=== PATIENT | female | born 1955 | race African-American/Black ===

== ENCOUNTER → 2019-04-03 | Outpatient (CLI) | payer MEDICARE, MEDICAID, SELFPAY | PROVIDERS: PCP Internal Medicine; Visit Provider Nurse Practitioner | DX: R20.0 Anesthesia of skin (principal); M79.604 Pain in right leg; I65.21 Occlusion and stenosis of right carotid artery; M25.572 Pain in left ankle and joints of left foot; M25.571 Pain in right ankle and joints of right foot | CPT/HCPCS: 93880; 93922 ==

== ENCOUNTER 2019-07-04 10:10 | Outpatient (CLI) | payer MEDICARE, MEDICAID, SELFPAY ==
--- NOTE | ~2019-07-04 | MR_ITS ---
EXAMINATION: MR brain/brain stem wo con EXAM DATE: 07/04/2019 10:47 INDICATION: Skin paresthesia. Occasional right side hemiparesis. TECHNIQUE: Magnetic resonance imaging (MRI) of the brain/brain stem obtained without contrast. Sagitt al T1, axial diffusion, gradient echo (T2*), T1, T2, FLAIR sequences obtained. Comparison is made to prior examination from 01/27/2006. FINDINGS: There are no areas of restricted diffusion to suggest acute infarction. There is no acute hemorrhage seen on the T2*, a hemosiderin sensitive sequence. No intraparenchymal brain mass lesion. There is mild periventricular and subcortical T2/FLAIR signal hyperintensity, nonspecific but probab ly related to small vessel ischemic disease (microangiopathy). There are no extra-axial collectio ns. Flow voids are seen in the cerebral arteries on the T2-weighted sequences consistent with their expected patency. The orbits are unremarkable. Soft tissue is unremarkable. IMPRESSION: 1. No acute intracranial findings. 2. Mild microangiopathy. Reviewed, dictated and finalized at location B. TERSINKER
== END 2019-07-04 10:11 | disposition home or self-care (01) ==
LOC: ANHIMG 10:16
PROVIDERS: PCP Internal Medicine; Visit Provider Psychiatry & Neurology Neurology
DX: R20.2 Paresthesia of skin (principal); I73.9 Peripheral vascular disease, unspecified
CPT/HCPCS: 70551

== ENCOUNTER 2019-10-03 12:36 | Outpatient (CLI) | payer MEDICARE, MEDICAID, SELFPAY ==
--- NOTE | ~2019-10-03 | CT_ITS ---
EXAMINATION:CT chest high resolution wo co DATE: 10/03/2019 14:16 INDICATION: Sarcoidosis. TECHNIQUE: Computed tomography (CT) of the chest was performed without intravenous contrast. Automate d exposure control and iterative reconstruction technique were employed. The dose-length product (DLP ) was 128.14 mGy-cm. COMPARISON: Chest CT 11/21/2012 FINDINGS: There are scattered nodules, airspace, and groundglass opacities involving all lobes with a rchitectural distortion. There is varicose bronchiectasis involving the upper lobes. There are trace pleural effusions. There is left atrial enlargement the heart. There are coronary artery calcificatio ns. There is a small pericardial effusion. Calcified mediastinal and hilar lymph nodes are consistent with old granulomatous disease. There are gallstones in the gallbladder, which is normal in size. Th e central pulmonary arteries are enlarged, consistent with pulmonary arterial hypertension. There is mild thoracic spondylosis. IMPRESSION: 1. Diffuse lung disease that is predominantly stable with some areas of improvement and some areas of worsening when compared to 11/21/12, consistent with sarcoid. 2. Cholelithiasis. Reviewed, dictated and finalized at location A. IMPRESSION: 1. Diffuse lung disease that is predominantly stable with some areas of improve ment and some areas of worsening when compared to 11/21/12, consistent with sarc oid. 2. Cholelithiasis.
--- NOTE | 2019-10-03 12:56 | ECHO_ITS ---
Patient Info Name: Anderson Whitlock Age: 64 years : 1955 Gender: Female Ht: 67 in Wt: 151 lbs BSA: 1.81 m2 HR: 82 bpm BP: 143 / 96 mmHg Technical Quality: Fair Exam Date: 10/03/2019 1:20 PM Exam Location: [facility] Patient Status: Outpatient Admit Date: 10/03/2019 Staff Ordering Physician: Abdi Jessica MD French Edge Operator: Michael Carter RDCS, RT Attending Provider: Abdi Jessica MD Referring Physician: Jaskaran FISHER; Exam Type: CA echo doppler color flow Study Info Indications I27.0 - Primary pulmonary hypertension Complete two-dimensional, color flow and Doppler transthoracic echocardiogram is performed. Summary 1. Left ventricular chamber dimension is normal. 2. Left ventricular systolic function is normal, estimated at 55-60%. 3. D shape interventricular septum in systole and diastole suggesting pressure and volume overload. 4. The left ventricular diastolic function is abnormal. 5. E/e' 9 is minimally elevated. 6. Based on TAPSE 2.1 cm suggests normal RV systolic function. 7. There is mild aortic valve sclerosis. 8. There is trace mitral valve regurgitation. 9. The tricuspid valve leaflets are mildly thickened. 10. There is mild to moderate tricuspid valve regurgitation. 11. Severe pulmonary hypertension, estimated pulmonary arterial systolic pressure is 104 mmHg. 12. There is mild pulmonic regurgitation. Left Ventricle D shape interventricular septum in systole and diastole suggesting pressure and volume overload. E/e' 9 is minimally elevated. Left ventricular chamber dimension is normal. Left ventricular systolic function is normal, estimated at 55-60%. The left ventricular diastolic function is abnormal. Right Ventricle Based on TAPSE 2.1 cm suggests normal RV systolic function. Right ventricular chamber dimension is not well visualized. Left Atria Left atrial chamber dimension is normal. Right Atria Right atrial chamber dimension is normal. Aortic Valve The aortic valve is trileaflet. There is mild aortic valve sclerosis. There is no aortic valve stenosis. There is no aortic valve regurgitation. Pulmonic Valve There is mild pulmonic regurgitation. Mitral Valve There is no mitral valve stenosis. There is trace mitral valve regurgitation. Tricuspid Valve The tricuspid valve leaflets are mildly thickened. There is mild to moderate tricuspid valve regurgitation. Severe pulmonary hypertension, estimated pulmonary arterial systolic pressure is 104 mmHg. Pericardium/Pleural There is no pericardial effusion. Inferior Vena Cava Normal inferior vena cava with >50% collapse upon inspiration consistent with normal right atrial pressure, 5 mmHg. Aorta The aortic root size at the sinus of Valsalva is normal. Left Ventricular Outflow Tract Name Value Normal LVOT 2D LVOT Diameter 2.1 cm LVOT Doppler LVOT Peak Gradient 2 mmHg LVOT Mean Gradient 1 mmHg LVOT VTI 12 cm LVOT VTI/AV VTI Ratio 0.8 LVOT Rosa
== END 2019-10-03 12:37 | disposition home or self-care (01) ==
PROVIDERS: PCP Internal Medicine; Visit Provider Internal Medicine Critical Care Medicine
DX: D86.9 Sarcoidosis, unspecified (principal); J98.4 Other disorders of lung; K80.20 Calculus of gallbladder without cholecystitis without obstruction; I27.20 Pulmonary hypertension, unspecified; R93.1 Abnormal findings on diagnostic imaging of heart and coronary circulation
CPT/HCPCS: 71250; 93306

== ENCOUNTER 2019-10-30 11:06 | Outpatient (CLI) | payer MEDICARE, MEDICAID, SELFPAY ==
[2019-11-02 20:09] LABS: NIL 0.01 IU/mL; Quantiferon TB Plus, 1T NEGATIVE (NEGATIVE)
== END 2019-10-30 11:07 | disposition home or self-care (01) ==
PROVIDERS: PCP Internal Medicine; Visit Provider Internal Medicine Critical Care Medicine
DX: D86.9 Sarcoidosis, unspecified (principal)
CPT/HCPCS: 36415; 86480

== ENCOUNTER 2019-12-13 18:04 | Inpatient (IN) | payer MEDICARE, MEDICAID, SELFPAY ==
--- NOTE | ~2019-12-13 | CT_ITS ---
EXAMINATION: CT BRAIN W/O DATE: 12/13/2019 19:26 INDICATION: Confusion TECHNIQUE: Computed tomography (CT) of the head was performed without intravenous contrast. The dose- length product was 605.33 mGy-cm. The mA was adjusted according to patient size. Iterative reconstruc tion technique was employed. COMPARISON: CT dated 01/30/2007 FINDINGS: Normal brain parenchymal volume for age. Normal saravia-white differentiation. No acute intrac ranial hemorrhage, infarction, mass or mass effect. No ventriculomegaly or midline shift. Midline sagittal images demonstrate a normal corpus callosum, c raniovertebral junction and sella turcica. Basilar cisterns are patent. Mild intracranial atheroscler osis. Paranasal sinuses and mastoids are pneumatized. No depressed skull fractures. IMPRESSION: 1. No acute intracranial abnormality. Reviewed, dictated and finalized at location A.
--- NOTE | ~2019-12-13 | MR_ITS ---
EXAMINATION: MR brain/brain stem wo/w con DATE: 12/15/2019 13:40 INDICATION: Confusion. Sarcoid. TECHNIQUE: Magnetic resonance imaging (MRI) of the brain and brainstem was performed without and with 13 mL MultiHance intravenous contrast. Sequences included sagittal and axial T1-weighted FSE, axial diffusion-weighted FS EPI, axial T2*-weighted GRE, axial T2-weighted FLAIR Propeller, and axial T2-we ighted Propeller. Postcontrast sequences included axial and coronal T1-weighted FSE. Apparent diffusi on coefficient (ADC) maps were created. COMPARISON: Brain MRI 07/04/2019 FINDINGS: There are scattered areas of nonspecific increased T2-weighted signal intensity in the cere bral white matter. There is no intracranial hemorrhage, acute infarction, or abnormal intracranial ma ss lesion. The ventricles are normal in size. The mastoid air cells are normal. The paranasal sinuses are clear. The orbits are normal. IMPRESSION: 1. Stable mild nonspecific cerebral white matter disease, which likely represents chronic small vesse l ischemic disease. Reviewed, dictated and finalized at location A. IMPRESSION: 1. Stable mild nonspecific cerebral white matter disease, which likely represen ts chronic small vessel ischemic disease.
--- NOTE | ~2019-12-13 | XR_ITS ---
XR chest 1V portable 12/13/2019 19:16 Indication: Shortness of breath. Sarcoidosis. Procedure: AP portable chest Comparison: Comparison to multiple prior studies sequentially, with oldest reviewed study dated 10/02. Findings: There is extensive coarse bilateral pulmonary fibrosis which is unchanged compared with 01/2019. No acute focal pneumonia. No pneumothorax. Calcified mediastinal lymph nodes. Impression: 1: Stable pulmonary fibrosis/scarring compared with prior studies, likely sequela of patient's known sarcoidosis. Reviewed, dictated and finalized at location A. Impression: 1: Stable pulmonary fibrosis/scarring compared with prior studies, likely seque la of patient's known sarcoidosis.
--- NOTE | ~2019-12-13 | CT_ITS ---
EXAMINATION:CT chest high resolution wo [place] DATE: 12/14/2019 13:36 INDICATION: Shortness of breath. TECHNIQUE: Computed tomography (CT) of the chest was performed without intravenous contrast. Automate d exposure control and iterative reconstruction technique were employed. The dose-length product (DLP ) was 286.16 mGy-cm. COMPARISON: Chest CT 10/03/2019 FINDINGS: The lung volumes are small. There is air trapping in right middle lobe. There are periphera l reticular and airspace opacities involving all lobes. There is varicose bronchiectasis in the lungs with a perihilar and upper lobe predominance. Calcified pulmonary nodules and calcified hilar and me diastinal lymph nodes are consistent with old granulomatous disease. There are small pleural effusion s. Cardiomegaly is noted. There is a small pericardial effusion. Pneumomediastinum is noted. The cent ral pulmonary arteries are enlarged, consistent with pulmonary arterial hypertension. There is mild t horacic spondylosis. IMPRESSION: 1. Stable diffuse lung disease, consistent with sarcoid. 2. Stable small pleural effusions. 3. Pneumomediastinum. 4. Cardiomegaly. 5. Stable small pericardial effusion. Reviewed, dictated and finalized at location A.
[2019-12-13 18:24] VITALS: BP 152/108; PULSE 118; RESP 18; TEMP 36.2; O2SAT 91
--- NOTE | 2019-12-13 19:13 | ED.AMS ---
HPI - Altered Mental Status General Chief Complaint: Altered Mental Status Stated Complaint: CONFUSION FOR PAST FEW DAYS Time Seen by Provider: 12/13/19 19:00 History of Present Illness HPI narrative: Patient presents with her mom telling boyfriend for confusion and weakness. She has sarcoidosis and wears 3 L of oxygen at home. She has been referred to [facility] to be evaluated for lung transplant. She is on prednisone 20 mg a day and methotrexate. In the last week she has had increased confusion to where she just standing there and not knowing where she is going or what she is doing. She is also had weakness where she cannot get out of bed unassisted. Her boyfriend says that she also has pain in her arms and her legs that if he even just touches her in the night that she cannot bear the pain. She also has new ankle swelling in the last week. She has no history of congestive heart failure. Her appetite is poor her bowels are moving. She has nocturia 1-2 times at night. She has no pain currently. She is oriented x2 saying that is 2019. She is unable to give details this history comes from the boyfriend. There is no history of recent injury trauma or illness. She denies fever chills sweats or cough. She does not smoke cigarettes. She rarely drinks alcohol. She does smoke marijuana. Surgeries include a left carpal tunnel. MD complaint: altered mental status and confusion Onset (ago): day(s) Timing confirmed by: caregiver Severity: moderate Consistency of symptoms: waxing and waning Associated symptoms: loss of appetite, weakness and difficulty walking Related Data Home Medications Medication Instructions Recorded Confirmed aspirin 81 mg tablet,delayed 81 mg PO DAILY 06/28/19 07/22/19 release cholecalciferol (vitamin D3) 50 2,000 unit PO DAILY 06/28/19 07/22/19 mcg (2,000 unit) tablet omeprazole 20 mg capsule,delayed 20 mg PO DAILY 06/28/19 07/22/19 release tiotropium bromide 18 mcg capsule 1 cap INHALATION DAILY 06/28/19 07/22/19 with inhalation device prednisone 10 mg tablet 20 mg PO DAILY tablet 11/27/19 hydrocodone-acetaminophen 12/13/19 hydrocodone-acetaminophen 12/13/19 Allergies Allergy/AdvReac Type Severity Reaction Status Date / Time prednisone Allergy Mild Nervousness Verified 12/13/19 18:36 Quinolones Allergy Mild Nervousness Verified 12/13/19 18:36 Sulfa (Sulfonamide Allergy Mild Nausea Verified 12/13/19 18:36 Antibiotics) MOXIFLOXACIN HCL Allergy Unknown Shakiness Uncoded 12/13/19 18:36 Review of Systems Review of Systems: Narrative: CONSTITUTIONAL: Denies fever, chills, or sweats. EYES: Denies visual changes, redness, or discharge. ENT: Denies rhinorrhea, congestion, sore throat, or otalgia. CARDIOVASCULAR: Denies chest pain, palpitations, but she does have ankle swelling. RESPIRATORY: Denies cough or dyspnea. GASTROINTESTINAL: Denies abdominal pain, nausea, vomiting, or diarrhea. GENITOURINARY: Denies dysuria or hematuria. SKIN: Denies rash or itching. MUSCULOSKELETAL: Denies back pain, joint pain, or myalgia. NEUROLOGIC: Denies headache, numbness, but does have weakness and confusion. [facility] Past Medical History Medical History (Updated 12/13/19 @ 21:04 by Cady Davies MD) Chronic respiratory failure with hypoxia Hypertension, essential Pulmonary hypertension Sarcoidosis Wrist fracture, left Surgical History Surgical History (Updated 12/13/19 @ 19:17 by Cady Davies MD) History of carpal tunnel surgery Family History Family History (Updated 07/22/19 @ 09:48 by Sayda Zarate NP-C) Mother Hypertension Family history of chronic obstructive pulmonary disease Sibling Family history of chronic obstructive pulmonary disease Family history of diabetes mellitus in first degree relative Diabetes mellitus Other Breast cancer Other Family history of congenital heart disease Social History Social History (Updated 12/13/19 @ 19:17 by Cady Davies MD) Smo
--- NOTE | 2019-12-13 19:19 | ECG_ITS ---
Measurements Intervals [place] Rate: 112 P: 75 MO: 156 QRS: 98 QRSD: 93 T: -63 QT: 331 QTc: 453 Interpretive Statements SINUS TACHYCARDIA RIGHT AXIS DEVIATION EARLY PRECORDIAL R/S TRANSITION, CONSIDER RIGHT VENTRICULAR HYPERTROPHY ST-T WAVE ABNORMALITY IN ANTEROSEPTAL/INF LEADS- CONSIDER ISCHEMIA ABNORMAL ECG Electronically Signed On 12-14-2019 6:49:40 CDT by Jet Moulton D.O.
[2019-12-13] MEDS: SODIUM CHLORIDE 0.9% IV 1,000 ML 999 ML IV CONT (19:51)
[2019-12-13] MEDS: NALOXONE HCL INJ 2 MG/2 ML AMP 1 MG IV PUSH (19:51)
[2019-12-13 20:04] LABS: Basophils Percent Auto 0.2 % (0.2-1.2); Eosinophils Percent Auto 0.1 % (0-4.4); Hematocrit 44.9 % (37.0-47.0); Hemoglobin 14.2 g/dL (12.0-15.0); Immature Granulocyte Absolute 0.05 K/mm3 (0.00-0.031); Immature Granulocyte Percent A 0.5 % (0-0.5); Lymphocytes Absolute Auto 0.77 K/mm3 (0.9-3.2); Lymphocytes Percent Auto 7.4 % (18.3-44.2); Mean Corpuscular HGB Conc 31.6 g/dl (32-36); Mean Corpuscular Hemoglobin 31.8 pg (26-34); Mean Corpuscular Volume 100.4 fl (80-100); Mean Platelet Volume 9.2 fl (7.4-10.4); Monocytes Absolute Auto 0.6 K/mm3 (0.1-0.6); Monocytes Percent Auto 5.4 % (2.6-8.5); Neutrophils Absolute Auto 9.1 K/mm3 (1.3-6.7); Neutrophils Percent Auto 86.4 % (45.5-73.1); Platelet Count Result 335 k/mm3 (150-375); Red Blood Count 4.47 M/mm3 (4.2-5.4); Red Cell Distribution Width 16.5 % (11.5-14.5); White Blood Count 10.5 K/mm3 (4.5-10.0)
[2019-12-13 20:09] LABS: Add Urine Microscopic? YES; Appearance Urine Clear (Clear); Bacteria Urine Trace /hpf; Bilirubin Urine Negative (Negative); Blood Urine 3+ (Negative); Color Urine Yellow (Yellow); Glucose Urine UA Negative (Negative); Hyaline Casts Urine 20-29 /lpf; Ketones Urine Trace mg/dL (Negative); Leukocyte Esterase Ur Negative LEU/UL (Negative); Mucus Urine Heavy /lpf; Nitrate Urine Negative (Negative); Protein Urine 3+ mg/dL (Negative); RBC Urine 21-50 /hpf (0-2); Renal Epithelial Cells Urine Rare /hpf (None Seen); Squamous Epithelial Cell Urine Many /hpf (Few)
[2019-12-13 20:14] LABS: Alveolar/Arterial O2 Gradient 51.5 mmHg; Base Excess ABG -0.5 mEq/l (+/-2.0); Fractional Inspired Oxygen 32 %; HCO3 ABG 22.5 mEq/l (22.0-26.0); Oxygen Content ABG 19.8 %vol (16.0-22.0); Oxygen Saturation ABG 98.9 % (95.0-100.0); Oxyhemoglobin 97.3 % THb (90.0-100.0); PCO2 ABG 32.5 mmHg (35.0-45.0); PO2 ABG 138.6 mmHg (80.0-100.0); PO2 FiO2 Ratio Arterial Blood 4.33 %; Total Hemoglobin 14.3 g/dL (12.0-18.0); pH ABG 7.459 (7.350-7.450)
[2019-12-13 20:15] LABS: Device NASAL CANNULA; Modified Allen's Test Pass; Site Drawn RIGHT RADIAL
[2019-12-13 20:17] LABS: Alanine Aminotransferase 32 U/L (4-35); Albumin Level 4.5 g/dL (3.5-5.1); Alkaline Phosphatase 44 U/L (38-126); Aspartate Amino Transferase 29 U/L (14-36); Bilirubin,Total 2.2 mg/dL (0.2-1.3); Blood Urea Nitrogen 26 mg/dL (7-17); Calcium 9.6 mg/dL (8.4-10.2); Carbon Dioxide 24 mmol/L (22-30); Chloride 107 mmol/L (98-107); Estimated CRCL calculation 48 ml/min; Estimated Glomerular Filt Rate > 60; Ethanol < 10 mg/dL (<10); Glucose 133 mg/dL (65-105); Potassium 4.2 mmol/L (3.4-5.0); Sodium 140 mmol/L (137-145); Specific Grav Ur 1.031 (1.001-1.035)
[2019-12-13 20:26] LABS: NT Pro B Type Natriuretic Pept 10500 PG/ML (5-100)
[2019-12-13 20:39] LABS: Amphetamine Screen Urine Negative (Negative); Barbiturate Screen Urine Negative (Negative); Benzodiazepines Screen Urine Negative (Negative); Cannabinoid Screen Urine Negative (Negative); Cocaine Screen Urine Negative (Negative); Methadone Screen Urine Negative (Negative); Opiate Screen Urine Positive (Negative); Phencyclidine Screen Urine Negative (Negative)
--- NOTE | 2019-12-13 20:45 | PC.NURSE ---
Patient called out and stated her arm was swollen. IV appears to have infiltrated. Patient denies pain. IV removed. Warm compress applied.
[2019-12-13 20:46] VITALS: BP 117/93; PULSE 110; RESP 21; O2SAT 100
[2019-12-13] MEDS: FUROSEMIDE INJ 40 MG/4 ML VIAL IV PUSH (21:42)
[2019-12-13 22:59] VITALS: BP 149/98; PULSE 110; RESP 18; O2SAT 100
[2019-12-13 23:06] VITALS: BP 146/97; PULSE 110; RESP 18; TEMP 36.1; O2SAT 93; BMI 23.6
[2019-12-13 23:15] VITALS: PULSE 112
[2019-12-13 23:25] VITALS: PULSE 110; RESP 18; O2SAT 93; BMI 23.6
--- NOTE | 2019-12-13 23:31 | ADMGEN ---
This patient, Anderson Whitlock, was admitted to IMU Room 232-01 on 12/13/19 at 2306. Patient/family oriented to hospital policies and general routines including ID bracelet, bed and alarms, visiting hours, pain management, procedures, bathroom and other care routines, personal items, smoking policy, room service/diet, and visiting hours. Valuables list has been completed. Information on how to activate the Rapid Response Team has been discussed. Patient/Family are encouraged to report perceived risks to care and to ask questions if they do not understand what they are told or what they should do.
[2019-12-13 23:42] LABS: Troponin I 0.065 ng/mL (0.000-0.034)
[2019-12-14] VITALS (14 sets, daily range): BP systolic 130–152; BP diastolic 81–99; PULSE 88–114; RESP 18–20; TEMP 35.8–36.5; O2SAT 96–100
[2019-12-14 02:55] LABS: Troponin I 0.068 ng/mL (0.000-0.034)
[2019-12-14] MEDS: ONDANSETRON INJ 4 MG/2 ML VIAL IV PUSH (04:30)
[2019-12-14] MEDS: FLUTICASONE/SALMETEROL 115-21 MCG INHALER 1 PUFF 2 PUFF INHALATION ×2 (08:36→19:57)
[2019-12-14] MEDS: ASPIRIN 81 MG ENTERIC TABLET PO (08:54)
[2019-12-14] MEDS: CHOLECALCIFEROL 1,000 UNIT TABLET 2000 UNITS PO (08:55)
[2019-12-14] MEDS: PANTOPRAZOLE SOD SESQUIHYDRATE 20 MG TAB PO (08:55)
[2019-12-14] MEDS: METOPROLOL SUCCINATE EXT REL 25 MG TABCR 75 MG PO ×2 (08:55→21:03)
[2019-12-14] MEDS: predniSONE 20 MG TABLET PO (08:55)
--- NOTE | 2019-12-14 10:59 | PM.CNPUL ---
Assessment and Plan Assessment and plan (1) WHO group 3 pulmonary arterial hypertension: Code(s): I27.23 - Pulmonary hypertension due to lung diseases and hypoxia Status: Acute Assessment and Plan: - due to combination of advanced Sarcoidosis and chronic hypoxemia - I instructed her to keep her oxygen at 5 liters at rest, sleep and exertion once she goes home to avoid transient drops in oxygen levels. - goal O2 sats > 92% - lasix 20 mg PO daily will be started - spironolactone 12.5 mg PO daily will also be started - Pulmonary Artery Hypertension directed therapy such pulmonary vasodilators and other are contraindicated and not helpful in this case. (2) Chronic respiratory failure with hypoxia: Code(s): J96.11 - Chronic respiratory failure with hypoxia Status: Acute Assessment and Plan: Due to advanced Sarcoidosis (3) Sarcoidosis: Code(s): D86.9 - Sarcoidosis, unspecified Status: Acute Assessment and Plan: Severe and advanced. - I've put in a Lung Transplantation referral to [facility] about 2-3 weeks ago - I've asked her boyfriend to call our office on Monday to see where that is in the process - continue prednisone 20 mg daily - continue Methotrexate 10 mg weekly on Monday - will add Folic Acid 1 mg PO daily (4) Change in mental status: Code(s): R41.82 - Altered mental status, unspecified Status: Acute Assessment and Plan: Likely due to transient home hyoxemia on exertion and seems to have resolved. - if stable by tomorrow can be discharged home from my point of view. History of Present Illness History of Present Illness Consult date: 12/14/19 Reason for consult: dyspnea Chief complaint: new CHF, sarcoidosis, SOB Narrative: 64 y/o with advanced pulmonary sarcoidosis presents with confusion according to her boyfriend. According to her she's not routinely increasing oxygen levels from 3 to 5 liters on exertion as I instructed her in office many weeks ago. According to her boyfriend she's also complaining of her feet hurting but no parasthesia complaints. CT head was normal yesterday. She's had increased LE edema and recent Echo showed severe pulmonary hypertension with an estimated RSVP of 104 mm Hg and likely due to severe sarcoidosis and chronic hyoxemia . She's supposed to be on prednisone 20 mg daily + methotrexate 10 mg daily but her boyfriend tells me that she's not consistent with taking her meds and sometimes takes lower doses. Review of Systems Review of Systems: All systems reviewed & are unremarkable except as noted in HPI and below PMFSH Past Medical History Medical History (Updated 12/14/19 @ 11:07 by Abdi Jessica MD) Chronic respiratory failure with hypoxia Hypertension, essential Pulmonary hypertension Sarcoidosis WHO group 3 pulmonary arterial hypertension Wrist fracture, left Surgical History Surgical History (Updated 12/13/19 @ 19:17 by Cady Davies MD) History of carpal tunnel surgery Social History Social History (Updated 12/13/19 @ 19:17 by Cady Davies MD) Smoking status: Never smoker Alcohol intake: current Substance use: never Substance use type: marijuana Gender identity (if verbalized by the patient): Female Spiritual care concerns: No Meds Home Medications and Allergies Home Medications Medication Instructions Recorded Confirmed Type aspirin 81 mg tablet,delayed 81 mg PO DAILY 06/28/19 12/13/19 History release cholecalciferol (vitamin D3) 50 2,000 unit PO DAILY 06/28/19 12/13/19 History mcg (2,000 unit) tablet omeprazole 20 mg capsule,delayed 20 mg PO DAILY 06/28/19 12/13/19 History release tiotropium bromide 18 mcg capsule 1 cap INHALATION DAILY 06/28/19 12/14/19 History with inhalation device fluticasone 250 mcg-salmeterol 50 1 inhalation INHALATION BID #60 08/16/19 12/13/19 Rx mcg/dose blistr powdr for each inhalation hydrocodone 7.5 mg-acetaminophen
[2019-12-14] MEDS: SPIRONOLACTONE 12.5 MG TABLET PO (11:46)
[2019-12-14] MEDS: FOLIC ACID 1 MG TABLET PO (11:46)
[2019-12-14] MEDS: FUROSEMIDE 20 MG TABLET PO (11:46)
--- NOTE | 2019-12-14 15:58 | PM.IMHP ---
H&P: HPI History of Present Illness Chief complaint: new CHF, sarcoidosis, SOB Narrative: Anderson Whitlock is a 64 year old female patient with a sarcoidosis resulting in end-stage lung disease, patient is on chronically on methotrexate as well as prednisone, is currently on 3L of oxygen at rest and 5 L with exertion however patient does not adjust her oxygen while ambulating to 5 L, apparently patient was ambulating on 3 L of oxygen and became hypoxic and confused and disoriented, patient was brought to the emergency department for further evaluation, patient is currently seen by senior validation engineer Dr. Jessica in his clinic, and patient also on waiting list for lung transplant at the [facility], today patient was seen by the senior validation engineer in consultation and we discussed, patient will repeat CT scan of the chest to compare last scan in September and further recommendation to follow, if patient remains clinically stable will discharge the patient home tomorrow. Review of Systems Review of Systems: All systems reviewed & are unremarkable except as noted in HPI and below PMFSH Past Medical History Medical History (Updated 12/14/19 @ 16:09 by Dianna Bland MD) Chronic respiratory failure with hypoxia Hypertension, essential Pulmonary hypertension Sarcoidosis WHO group 3 pulmonary arterial hypertension Wrist fracture, left Surgical History Surgical History (Updated 12/13/19 @ 19:17 by Cady Davies MD) History of carpal tunnel surgery Social History Social History (Updated 12/13/19 @ 19:17 by Cady Davies MD) Smoking status: Never smoker Alcohol intake: current Substance use: never Substance use type: marijuana Gender identity (if verbalized by the patient): Female Spiritual care concerns: No Meds Home Medications and Allergies Home Medications Medication Instructions Recorded Confirmed Type aspirin 81 mg tablet,delayed 81 mg PO DAILY 06/28/19 12/13/19 History release cholecalciferol (vitamin D3) 50 2,000 unit PO DAILY 06/28/19 12/13/19 History mcg (2,000 unit) tablet omeprazole 20 mg capsule,delayed 20 mg PO DAILY 06/28/19 12/13/19 History release tiotropium bromide 18 mcg capsule 1 cap INHALATION DAILY 06/28/19 12/14/19 History with inhalation device fluticasone 250 mcg-salmeterol 50 1 inhalation INHALATION BID #60 03/13/20 07/10/20 Rx mcg/dose blistr powdr for each inhalation hydrocodone 7.5 mg-acetaminophen 1 tablet PO Q8H PRN #60 tablet 08/16/19 12/13/19 Rx 325 mg tablet methotrexate sodium 2.5 mg tablet 10 mg PO WEEKLY #20 tablet 11/27/19 12/13/19 Rx metoprolol succinate 75 mg PO BID 12/13/19 12/13/19 History prednisone 20 mg PO BID 12/13/19 12/13/19 History Allergies Allergy/AdvReac Type Severity Reaction Status Date / Time prednisone Allergy Mild Nervousness Verified 12/13/19 18:36 Quinolones Allergy Mild Nervousness Verified 12/13/19 18:36 Sulfa (Sulfonamide Allergy Mild Nausea Verified 12/13/19 18:36 Antibiotics) MOXIFLOXACIN HCL Allergy Unknown Shakiness Uncoded 12/13/19 18:36 Vital Signs Vital Signs - 24 hr 12/13/19 18:24 12/13/19 20:46 12/13/19 22:59 Temperature 97.1 F L Pulse Rate 118 H 110 H 110 H Respiratory Rate 18 21 H 18 Blood Pressure 152/108 H 117/93 H 149/98 H Pulse Oximetry 91 100 100 12/13/19 23:06 12/13/19 23:15 12/13/19 23:25 Temperature 96.9 F L Pulse Rate 110 H 112 H 110 H Respiratory Rate 18 18 Blood Pressure 146/97 H Pulse Oximetry 93 93 12/14/19 00:00 12/14/19 01:57 12/14/19 04:00 Temperature 97.4 F L Pulse Rate 112 H 104 H 93 Respiratory Rate 20 Blood Pressure 130/81 Pulse Oximetry 97 12/14/19 06:00 12/14/19 08:00 12/14/19 08:40 Temperature 96.4 F L Pulse Rate 102 H 105 H 103 H Respiratory Rate 20 18 Blood Pressure 132/97 H Pulse Oximetry 96 96 12/14/19 08:55 12/14/19 12:00 12/14/19 14:00 Temperature 97.0 F L Pulse Rate 107 H 102 H 101 H Respiratory Rate 20
--- NOTE | 2019-12-14 16:12 | PC.NURSE ---
1545- orders to transfer to med/tele- report given to Gloria BAUTISTA- pt transferred to room 242 via bed with O2 on NC- accompanied by RN and friend. personal belongings with pt
--- NOTE | 2019-12-14 16:15 | PC.NURSE ---
This patient, Anderson Whitlock, was received from [facility] 232/01 on 12/14/19 at 1605. Personal belongings list checked and signed. Patient/family oriented to unit policies and routines
[2019-12-15] VITALS (12 sets, daily range): BP systolic 106–134; BP diastolic 80–94; PULSE 87–103; RESP 16–18; TEMP 36–36.9; O2SAT 94–100
[2019-12-15 01:32] LABS: Alveolar/Arterial O2 Gradient 191.9 mmHg; Base Excess ABG -2.6 mEq/l (+/-2.0); Carboxyhemoglobin 1.1 % THb (0-2.0); Fractional Inspired Oxygen 40 %; Methemoglobin ABG 0.2 %THb (0-1.5); Oxygen Saturation ABG 92.2 % (95.0-100.0); Oxyhemoglobin 88.6 % THb (90.0-100.0); PCO2 ABG 29.5 mmHg (35.0-45.0); PO2 ABG 59.4 mmHg (80.0-100.0); PO2 FiO2 Ratio Arterial Blood 1.49 %; Reduced Hemoglobin 10.1 %THb (0-5.0); Total Hemoglobin 15.3 g/dL (12.0-18.0); pH ABG 7.449 (7.350-7.450)
[2019-12-15 01:33] LABS: Device NASAL CANNULA; Site Drawn RIGHT FEMORAL
[2019-12-15] MEDS: HALOPERIDOL LACTATE 5 MG/ML VIAL IM (01:41)
--- NOTE | 2019-12-15 02:12 | PC.NURSE ---
notified pts emergency contact Gerardo of pts transfer to IMU.
--- NOTE | 2019-12-15 02:14 | PC.NURSE ---
This patient, Anderson Whitlock, was received from [ [id number]] on 12/15/19 at 0200. Personal belongings list checked and signed. Patient/family oriented to unit policies and routines
--- NOTE | 2019-12-15 02:17 | PC.NURSE ---
This patient, Anderson Whitlock, was transferred to [IMU 204 ] on 12/15/19 at 0155. Personal belongings sent with patient. Belongings list checked and signed with receiving [ ]. Report given to [Gloria BAUTISTA ]. Appropriate documentation sent with patient.
[2019-12-15 04:30] LABS: Hematocrit 42.5 % (37.0-47.0); Hemoglobin 13.4 g/dL (12.0-15.0); Mean Corpuscular HGB Conc 31.5 g/dl (32-36); Mean Corpuscular Hemoglobin 31.4 pg (26-34); Mean Corpuscular Volume 99.5 fl (80-100); Mean Platelet Volume 9.4 fl (7.4-10.4); Platelet Count Result 309 k/mm3 (150-375); Red Blood Count 4.27 M/mm3 (4.2-5.4); Red Cell Distribution Width 15.9 % (11.5-14.5); White Blood Count 12.5 K/mm3 (4.5-10.0)
[2019-12-15 04:45] LABS: Alanine Aminotransferase 24 U/L (4-35); Albumin Level 3.8 g/dL (3.5-5.1); Alkaline Phosphatase 38 U/L (38-126); Aspartate Amino Transferase 27 U/L (14-36); Bilirubin,Total 2.3 mg/dL (0.2-1.3); Blood Urea Nitrogen 22 mg/dL (7-17); Carbon Dioxide 28 mmol/L (22-30); Chloride 106 mmol/L (98-107); Estimated CRCL calculation 53 ml/min; Estimated Glomerular Filt Rate > 60; Glucose 91 mg/dL (65-105); Magnesium 2.3 mg/dL (1.6-2.3); Potassium 3.7 mmol/L (3.4-5.0); Sodium 141 mmol/L (137-145)
--- NOTE | 2019-12-15 04:58 | PM.CCN ---
Critical Care Event Note Summary Code activated: No Narrative: Nursing staff called to notify me that the patient was agitated and pulling off her oxygen around 1:00 a.m.. She would not leave telemetry in place and was tachycardic. She was paranoid stating that the the oxygen was poisoning her. The patient was tachypneic and restless. Respiratory therapy was unable to obtain a stat ABG. When I arrived at bedside 5 staff members holding the patient down. I used an ultrasound at bedside to obtain a right femoral arterial blood gas. The gas was somewhat mixed as the patient was thrashing and writhing while I attempted the procedure. The patient's PO2 on her ABG was consistent with a pulse ox of 92%. Patient was placed on pulse oximetry at bedside and pulse ox from a forehead center demonstrated pulse ox of 99%. Given the patient's agitation and paranoia I did give the patient a dose of IM Haldol 5 mg. The patient had no localizing neurologic deficits on exam. She had 5/5 strength in all of her extremities. Nursing staff actually reported that the patient's speech was clear during this episode than it had been earlier in the day. The patient has evidently been having episodes of confusion each evening while at home. She had a CT of her brain on admission that was negative for acute intercranial process. She had an MRI of her brain in June that demonstrated nonspecific microangiopathy likely due to small-vessel ischemic disease. The patient was transferred to the IMU for closer monitoring of her neuro status and respiratory status. After Haldol administration the patient is calm. She is only alert and oriented x1. Assessment: 1. altered mental status with agitation-patient has been transferred to the IMU and IM Haldol was administered. 2. sarcoidosis 3. chronic hypoxic respiratory failure-respiratory status is stable. Patient is maintain her oxygen saturations on her usual home oxygen as long as she is leaving her oxygen in place. I did give permission for nursing staff to place the patient in restraints briefly while we obtained ABG sample. 30 minutes spent in critical care activities. This case had a high probability of a clinically significant, sudden, or life threatening deterioration of this patient's condition which required my full and direct attention, intervention and personal management. Critical care time: 30 - 74 mins
[2019-12-15] MEDS: FUROSEMIDE 20 MG TABLET PO (08:17)
[2019-12-15] MEDS: PANTOPRAZOLE SOD SESQUIHYDRATE 20 MG TAB PO (08:17)
[2019-12-15] MEDS: SPIRONOLACTONE 12.5 MG TABLET PO (08:18)
[2019-12-15] MEDS: predniSONE 20 MG TABLET PO (08:18)
[2019-12-15] MEDS: METOPROLOL SUCCINATE EXT REL 25 MG TABCR 75 MG PO ×2 (08:18→20:50)
--- NOTE | 2019-12-15 08:52 | PC.NURSE ---
This patient, Anderson Whitlock, was transferred to [facility] on 12/15/19 at 0852. Personal belongings sent with patient. Report given to Marly. Appropriate documentation sent with patient.
--- NOTE | 2019-12-15 08:58 | PC.NURSE ---
This patient, Anderson Whitlock, was received from IMU on 12/15/19 at 0852. Personal belongings list checked and signed. Patient/family oriented to unit policies and routines
[2019-12-15] MEDS: FLUTICASONE/SALMETEROL 115-21 MCG INHALER 1 PUFF 2 PUFF INHALATION (09:47)
--- NOTE | 2019-12-15 12:23 | PM.PNPUL ---
Progress Note: A&P Assessment and Plan (1) Acute and chronic respiratory failure with hypoxia: Code(s): J96.21 - Acute and chronic respiratory failure with hypoxia Status: Acute Assessment and Plan: contintune oxygen to keep sats > 92% at all times - would recommend continous pulse oxyimeter monitoring for 24-48 hours (2) WHO group 3 pulmonary arterial hypertension: Code(s): I27.23 - Pulmonary hypertension due to lung diseases and hypoxia Status: Acute Assessment and Plan: due to severe Sarcoidosis and chronic hypoxemia - continue oxygen to keep sats > 92% at all times - continue lasix 20 mg daily + spironlactone 12.5 mg daily - pulmonary vasodilator therapy would not be helpful in this case and may worsen hypoxemia (3) Change in mental status: Code(s): R41.82 - Altered mental status, unspecified Status: Acute (4) Sarcoidosis: Code(s): D86.9 - Sarcoidosis, unspecified Status: Acute (5) Delirium due to another medical condition: Code(s): F05 - Delirium due to known physiological condition Status: Acute Assessment and Plan: May be due to underlying Sarcoidosis or transient hypoxemia when she takes off her oxygen. - I will order a non urgent MRI of the brain to look for evidence of neurosarcoidosis. - I will order seroquel 50 mg PO QHS - Ativan 1 mg IV/PO QHS PRN for hyperactive acute delerium - consider Neurology consult if not improving and possibly LP - No signs of acute infection in the lungs. Will check UA and urine culture to r/o UTI. Time Spent With Patient Time with patient: 25 - 35 minutes Subjective Date/time seen: 12/15/19 12:23 Interval history: Pt had epidsode of delerium last night per [employer] engineer hospitalist. She was saying the oxygen was poisoning and although not recorded her nurse said that her oxygen sats dropped to around 88% this morning. Her boyfriend says this her behavior at home as well and he would often find her without oxygen on at night. He says even during the day her mental status is not normal and this has been going for the past 1-2 weeks. I ordered 1 mg of Ativan and she appears comfortable and sleeping in bed Review of Systems Review of Systems: All systems reviewed & are unremarkable except as noted in HPI and below Exam Const: General: comfortable and no acute distress Other: sleeping comfortably in bed Eyes: General: appearance normal, both eyes and all related structures Neck: Neck: supple and no JVD Resp: Effort & Inspection: normal respiratory effort Auscultation: clear to auscultation bilaterally, no crackles, no rales, no rhonchi and no wheezes Cardio: Rate: regular rate Rhythm: regular rhythm Heart sounds: no murmurs GI: GI Palp: Yes Soft to palpation Auscultation: normal bowel sounds Skin: General skin exam: normal color and no rashes or lesions noted Neuro: Speech: normal speech Other: A+O X 3 today and seems improved when compared to admission. GCS is 15 Extrem: General: edema (1-2+ edema in bilateral LE) Psych: Mental Status: mental status grossly normal Affect: normal affect Objective Data Vital Signs Vital Signs: Vital Signs - 24 hr 12/14/19 14:00 12/14/19 16:02 12/14/19 18:00 Temperature 36.5 C Pulse Rate 101 H 114 H 107 H Respiratory Rate 20 Blood Pressure 146/87 H Pulse Oximetry 97 12/14/19 20:00 12/14/19 20:02 12/14/19 21:03 Temperature 36.4 C L Pulse Rate 101 H 88 110 H Respiratory Rate 20 18 Blood Pressure 152/98 H Pulse Oximetry 99 97 12/15/19 00:00 12/15/19 00:30 12/15/19 02:00 Temperature 36.0 C L 36.9 C Pulse Rate 87 94 102 H Respiratory Rate 18 18 Blood Pressure 106/84 122/80 Pulse Oximetry 99 100 12/15/19 04:00 12/15/19 06:00 12/15/19 07:37 Temperature 36.9 C Pulse Rate 92 99 103 H Respiratory Rate 18 16 Blood Pressure 107/88 134/94 H Pulse Oximetry 99 96 12/15/19 08:18 12/15/19 09:47 Temperature Pul
--- NOTE | 2019-12-15 12:59 | PM.IMPN ---
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 Jessica in his clinic, and patient also on waiting list for lung transplant at the [facility], today patient was seen by the manufacturing specialist in consultation and we discussed, patient will repeat CT scan of the chest to compare last scan in September and further recommendation to follow. Last night patient had episode of confusion and delirium, today discussed with Dr. Jessica suspect hypoxia major cause of confusion as patient does not wear her oxygen all the time, to further evaluate patient will have MRI of the brain, will start the patient on low-dose Seroquel at the bedtime, will continue to monitor, currently patient is somnolent, her fiancee is present in the room answered all his questions (2) Change in mental status: Code(s): R41.82 - Altered mental status, unspecified Status: Acute Assessment and Plan: Most likely secondary to hypoxia (3) Sarcoidosis: Code(s): D86.9 - Sarcoidosis, unspecified Status: Acute Assessment and Plan: Patient with sarcoidosis satting in end-stage lung disease chronically on methotrexate and prednisone, patient is seen by manufacturing specialist and patient is on waiting list for lung transplant. 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 Jessica in his clinic, and patient also on waiting list for lung transplant at the [facility], today patient was seen by the manufacturing specialist in consultation and we discussed, patient will repeat CT scan of the chest to compare last scan in September and further recommendation to follow. Last night patient had episode of confusion and delirium, today discussed with Dr. Jessica suspect hypoxia major cause of confusion as patient does not wear her oxygen all the time, to further evaluate patient will have MRI of the brain, will start the patient on low-dose Seroquel at the bedtime, will continue to monitor, currently patient is somnolent, her fiancee is present in the room answered all his questions Review of Systems Review of Systems: All systems reviewed & are unremarkable except as noted in HPI and below Exam Narrative: Exam Narrative: Patient appears chronically ill Const: General: comfortable and no acute distress HENMT: General nose exam: Normal nares present Eyes: General: appearance normal, both eyes and all related structures Sclera: sclerae normal Neck: Neck: supple Resp: Other: Bilateral poor air entry with rhonchi Cardio: Rate: regular rate Rhythm: regular rhythm GI: Auscultation: normal bowel sounds Skin: General skin exam: normal color Neuro: Speech: normal speech Sensory Exam: normal sensation Extrem: General: normal to inspection Psych: Affect: Anxious affect p
[2019-12-15 15:52] LABS: Add Urine Microscopic? YES; Appearance Urine Clear (Clear); Bilirubin Urine Negative (Negative); Blood Urine 2+ (Negative); Color Urine Amber (Yellow); Glucose Urine UA Negative (Negative); Ketones Urine Trace mg/dL (Negative); Leukocyte Esterase Ur Trace LEU/UL (Negative); Mucus Urine Heavy /lpf; Nitrate Urine Negative (Negative); Protein Urine 2+ mg/dL (Negative); Specific Grav Ur 1.027 (1.001-1.035); Squamous Epithelial Cell Urine Many /hpf (Few); WBC Urine 16-20 /hpf
[2019-12-15] MEDS: QUEtiapine FUMARATE 25 MG TABLET 50 MG PO (20:52)
[2019-12-16] VITALS (11 sets, daily range): BP systolic 127–144; BP diastolic 86–98; PULSE 92–112; RESP 18–20; TEMP 36.2; O2SAT 88–100
[2019-12-16 05:27] LABS: Hematocrit 44.8 % (37.0-47.0); Hemoglobin 14.3 g/dL (12.0-15.0); Mean Corpuscular HGB Conc 31.9 g/dl (32-36); Mean Corpuscular Volume 100.2 fl (80-100); Mean Platelet Volume 9.5 fl (7.4-10.4); Platelet Count Result 319 k/mm3 (150-375); Red Blood Count 4.47 M/mm3 (4.2-5.4); Red Cell Distribution Width 15.9 % (11.5-14.5); White Blood Count 11.9 K/mm3 (4.5-10.0)
[2019-12-16 05:39] LABS: Alanine Aminotransferase 23 U/L (4-35); Albumin Level 3.7 g/dL (3.5-5.1); Alkaline Phosphatase 44 U/L (38-126); Aspartate Amino Transferase 27 U/L (14-36); Bilirubin,Total 2.4 mg/dL (0.2-1.3); Blood Urea Nitrogen 21 mg/dL (7-17); Carbon Dioxide 26 mmol/L (22-30); Chloride 105 mmol/L (98-107); Estimated CRCL calculation 53 ml/min; Estimated Glomerular Filt Rate > 60; Glucose 97 mg/dL (65-105); Potassium 3.7 mmol/L (3.4-5.0); Sodium 138 mmol/L (137-145)
[2019-12-16] MEDS: predniSONE 20 MG TABLET PO (08:24)
[2019-12-16] MEDS: FOLIC ACID 1 MG TABLET PO (08:25)
[2019-12-16] MEDS: CHOLECALCIFEROL 1,000 UNIT TABLET 2000 UNITS PO (08:25)
[2019-12-16] MEDS: ASPIRIN 81 MG ENTERIC TABLET PO (08:25)
[2019-12-16] MEDS: METOPROLOL SUCCINATE EXT REL 25 MG TABCR 75 MG PO (08:25)
[2019-12-16] MEDS: FUROSEMIDE 20 MG TABLET PO (08:25)
[2019-12-16] MEDS: PANTOPRAZOLE SOD SESQUIHYDRATE 20 MG TAB PO (08:25)
[2019-12-16] MEDS: SPIRONOLACTONE 12.5 MG TABLET PO (08:26)
[2019-12-16] MEDS: FLUTICASONE/SALMETEROL 115-21 MCG INHALER 1 PUFF 2 PUFF INHALATION (09:29)
--- NOTE | 2019-12-16 12:15 | PM.PNPUL ---
Progress Note: A&P Assessment and Plan (1) Acute and chronic respiratory failure with hypoxia: Code(s): J96.21 - Acute and chronic respiratory failure with hypoxia Status: Acute Assessment and Plan: contintune oxygen to keep sats > 92% at all times - Home O2 evaluation before going home today. She says she is using 2-2.5 L/min all the time, and needs more. - Follow up in the office in 1-2 weeks. (2) WHO group 3 pulmonary arterial hypertension: Code(s): I27.23 - Pulmonary hypertension due to lung diseases and hypoxia Status: Acute Assessment and Plan: due to severe Sarcoidosis and chronic hypoxemia - continue oxygen to keep sats > 92% at all times - continue lasix 20 mg daily + spironlactone 12.5 mg daily - pulmonary vasodilator therapy would not be helpful in this case and may worsen hypoxemia (3) Change in mental status: Code(s): R41.82 - Altered mental status, unspecified Status: Acute Assessment and Plan: 12-15-2019 brain MRI : Stable mild nonspecific cerebral white matter disease, likely represents chronic small vessel ischemic disease. - improved (4) Sarcoidosis: Code(s): D86.9 - Sarcoidosis, unspecified Status: Acute Assessment and Plan: (5) Delirium due to another medical condition: Code(s): F05 - Delirium due to known physiological condition Status: Acute Assessment and Plan: Resolved; might have been due to underlying Sarcoidosis or transient hypoxemia when she takes off her oxygen. - MRI of the brain does not show neurosarcoidosis, only stable mild nonspecific cerebral white matter disease, which likely represents chronic small vessel ischemic disease. - seroquel 50 mg PO QHS - consider Neurology consult if not improving and possibly LP - No signs of acute infection in the lungs. UA = may have some evidence of inflammation with rbc, on antibiotics. Subjective Date/time seen: 12/16/19 12:15 Interval history: This 64 yo female is seen in follow up for sarcoidosis, WHO class 3 pulmonary hypertension, acute on chronic respiratory failure. She says that she uses oxygen at 2- 2.5 L/min with rest and exertion. She agreed to walk and have the O2 adjusted. She has not been using her O2 as instructed, does not appear to be thinking clearly. She did not have delirium last night. She is awake, her is at the bedside. He is asking about a hospital bed to use at home and some kind of home alarm to let him know if she falls, something like a Life Alert monitor to wear around her neck. He can obtain a rental hospital bed from [facility] or [facility]. She is feeling better, and wants to go home today. Review of Systems Review of Systems: All systems reviewed & are unremarkable except as noted in HPI and below Exam Const: General: comfortable and no acute distress Other: sitting comfortably in bed Eyes: General: appearance normal, both eyes and all related structures Neck: Neck: supple and no JVD Resp: Effort & Inspection: normal respiratory effort Auscultation: clear to auscultation bilaterally, no crackles, no rales, no rhonchi and no wheezes Cardio: Rate: regular rate Rhythm: regular rhythm Heart sounds: no murmurs GI: Auscultation: normal bowel sounds Skin: General skin exam: normal color and no rashes or lesions noted Neuro: Speech: normal speech Other: A+O X 3 today and seems improved when compared to admission. GCS is 15 Extrem: General: edema (trace in the left ankle ) left Psych: Mental Status: mental status grossly normal Affect: normal affect Objective Data Vital Signs Amanda
--- NOTE | 2019-12-16 15:00 | HOMEO2EVAL ---
Home Oxygen Evaluation RC: Home Oxygen (O2) Evaluation Start: 12/16/19 12:43 Freq: ONCE Status: Active Protocol: RPE Activity Type Activity Date Activity User E-Sign Co-Sign Detail Recorded Client Recorded Date Recorded By Document 12/16/19 14:30 SUGAR [email or web address] 12/16/19 15:00 SUGAR Document 12/16/19 14:32 SUGAR [email or web address] 12/16/19 15:00 SUGAR Document 12/16/19 14:34 SUGAR [email or web address] 12/16/19 15:00 SUGAR Document 12/16/19 14:35 SUGAR [email or web address] 12/16/19 15:00 SUGAR Document 12/16/19 14:40 SUGAR [email or web address] 12/16/19 15:00 SUGAR Document 12/16/19 14:50 SUGAR [email or web address] 12/16/19 15:00 SUGAR 12/16/19 12/16/19 12/16/19 14:30 14:32 14:34 Home O2 Evaluation Test Phase Resting Resting Resting Oxygen Delivery Room Air Nasal Cannula Nasal Cannula Oxygen Flow Rate (L/min) 1 2 Pulse Oximetry (90-100 %) 88 L 88 L 88 L Pulse Rate (60-100 beats/min) Activity Tolerance Ambulation Distance (feet) Home Oxygen Evaluation Comments 12/16/19 12/16/19 12/16/19 14:35 14:40 14:50 Home O2 Evaluation Test Phase Resting Exercise Resting Oxygen Delivery Nasal Cannula Nasal Cannula Nasal Cannula Oxygen Flow Rate (L/min) 3 3 3 Pulse Oximetry (90-100 %) 94 93 96 Pulse Rate (60-100 beats/min) 99 112 H 99 Activity Tolerance Good Ambulation Distance (feet) 100 Home Oxygen Evaluation Comments PT WALK IN ROOM , WITH WALKER AND GAIT BELT.
--- NOTE | 2019-12-16 15:00 | PCRCNOTE ---
PT WALKED IN ROOM WITH GAIT BELT AND WALKER. PT AND SIGNIFICANT OTHER STATED THAT SHE HADNT BEEN UP EXCEPT TO THE BATHROOM A COUPLE TIMES. PT A BIT UNSTEADY ON HER FEET. SATS DID WELL ON 3L O2 WITH EXERTION IN ROOM. WALKED FOR APPROX 80-100 FEET. IF PT HAS DIFFICULTLY TOLERATING O2 AT HIGH LEVELS, SHE SEEMS TO BE ADEQUATELY OXYGENATED ON THE 3L WITH SMALL AMOUNTS OF EXERTION. THEY STATED THAT THEY NEEDED SOME E TANKS FOR PORTABILITY. I WILL CONTACT [facility] TO LET THEM KNOW OF PT NEEDS.
--- NOTE | 2019-12-16 15:09 | PM.DS ---
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 Jessica in his clinic, and patient also on waiting list for lung transplant at the [facility], today patient was seen by the tile trimmer in consultation and we discussed, patient will repeat CT scan of the chest to compare last scan in September and further recommendation to follow. Last night patient had episode of confusion and delirium, today discussed with Dr. Jessica suspect hypoxia major cause of confusion as patient does not wear her oxygen all the time, to further evaluate patient will have MRI of the brain, will start the patient on low-dose Seroquel at the bedtime, will continue to monitor, currently patient is somnolent, her fiancee is present in the room answered all his questions (2) Change in mental status: Code(s): R41.82 - Altered mental status, unspecified Status: Acute Assessment and Plan: Most likely secondary to hypoxia (3) Sarcoidosis: Code(s): D86.9 - Sarcoidosis, unspecified Status: Acute Assessment and Plan: Patient with sarcoidosis satting in end-stage lung disease chronically on methotrexate and prednisone, patient is seen by tile trimmer and patient is on waiting list for lung transplant. 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 Jessica in his clinic, and patient also on waiting list for lung transplant at the [facility], today patient was seen by the tile trimmer in consultation and we discussed, patient will repeat CT scan of the chest to compare last scan in September and further recommendation to follow, if patient remains clinically stable will discharge the patient home tomorrow. 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 Jessica in his clinic, and patient also on waiting list for lung transplant at the [facility], today patient was seen by the tile trimmer in consultation and we discussed, patient will repeat CT scan of the chest to compare last scan in September and further recommendation to follow. Last night patient had episode of confusion and delirium, today discussed with Oscar
== END 2019-12-16 16:13 | disposition home health service (06) | DRG 196 ==
LOC: ANHED 22:11 → ANHIMU 22:33 → ANH2MED 12-15 02:04 → ANHIMU 12-18 15:31
PROVIDERS: Internal Medicine Critical Care Medicine; Admitting Provider Internal Medicine; Emergency Provider Emergency Medicine; PCP Internal Medicine; Visit Provider Family Medicine
DX: D86.9 Sarcoidosis, unspecified (principal); J96.21 Acute and chronic respiratory failure with hypoxia; F05 Delirium due to known physiological condition; I27.23 Pulmonary hypertension due to lung diseases and hypoxia; I10 Essential (primary) hypertension; Z99.81 Dependence on supplemental oxygen; Z79.52 Long term (current) use of systemic steroids
CPT/HCPCS: 36415; 36600; 70450; 70553; 71045; 71250; 80053; 80307; 81001; 82375; 82607; 82805; 83050; 83735; 83880; 84484; 85025; 85027; 87077; 87086; 87088; 93005; 94640; 96361; 96374; 96375; 99291; A9270; A9577; J0696; J1630; J1940; J2060; J2310; J2405; J7030; J7512

== ENCOUNTER 2020-01-30 10:17 | Emergency (ER) | payer MEDICARE, MEDICAID, SELFPAY ==
[2020-01-30] VITALS (26 sets, daily range): BP systolic 117–153; BP diastolic 73–115; PULSE 62–119; RESP 22–34; TEMP 36.4; O2SAT 93–100
--- NOTE | 2020-01-30 10:36 | ECG_ITS ---
Measurements Intervals [place] Rate: 113 P: 81 MT: 147 QRS: 120 QRSD: 93 T: -30 QT: 313 QTc: 431 Interpretive Statements SINUS TACHYCARDIA ATRIAL AND VENTRICULAR PREMATURE COMPLEXES RIGHT AXIS DEVIATION INCOMPLETE RIGHT BUNDLE BRANCH BLOCK ST-T WAVE ABNORMALITY IN ANT/INF LEADS- CONSIDER ISCHEMIA BASELINE ARTIFACT- I, II, AVR, AVL, AVF, V2-V6 ABNORMAL ECG Electronically Signed On 01-30-2020 12:44:02 CDT by Jet Moulton D.O.
--- NOTE | 2020-01-30 11:01 | PC.NURSE ---
deburr technician into pts room to draw labs. Pt became rude and refused to let tech draw. GALDINO Brunson was notified.
--- NOTE | 2020-01-30 12:43 | ED.GENADULT ---
HPI - General Adult General Chief complaint: Shortness of Breath/Dyspnea Stated complaint: SOB Source: patient and family Mode of arrival: EMS Limitations: no limitations History of Present Illness HPI narrative: Patient is a 64-year-old female who presents with dyspnea and weakness over the course of the last week has had recent hospitalization for similar occurrence with history of sarcoidosis and heart failure patient presents with her family patient notes that she has been lying in bed does not want to eat or drink and is also been noncompliant with her medications. Patient on arrival to emergency department is refusing any blood work. Patient denies any current pain. Patient denies any nausea vomiting diarrhea or any recent URI symptoms Related Data Home Medications Medication Instructions Recorded Confirmed aspirin 81 mg tablet,delayed 81 mg PO DAILY 06/28/19 01/30/20 release cholecalciferol (vitamin D3) 50 2,000 unit PO DAILY 06/28/19 12/13/19 mcg (2,000 unit) tablet omeprazole 20 mg capsule,delayed 20 mg PO DAILY 06/28/19 01/30/20 release tiotropium bromide 18 mcg capsule 1 cap INHALATION DAILY 06/28/19 12/14/19 with inhalation device metoprolol succinate 75 mg PO BID 12/13/19 01/30/20 prednisone 10 mg tablet 15 mg PO DAILY tablet 12/27/19 12/27/19 Allergies Allergy/AdvReac Type Severity Reaction Status Date / Time prednisone Allergy Mild Nervousness Verified 01/30/20 10:38 Quinolones Allergy Mild Nervousness Verified 01/30/20 10:38 Sulfa (Sulfonamide Allergy Mild Nausea Verified 01/30/20 10:38 Antibiotics) MOXIFLOXACIN HCL Allergy Unknown Shakiness Uncoded 01/30/20 10:38 Review of Systems Review of Systems: All systems reviewed & are unremarkable except as noted in HPI and below PMFSH Past Medical History Medical History Chronic respiratory failure with hypoxia Hypertension, essential Pulmonary hypertension Sarcoidosis WHO group 3 pulmonary arterial hypertension Wrist fracture, left Surgical History Surgical History History of carpal tunnel surgery Social History Social History Smoking status: Never smoker Alcohol intake: current Substance use: never Substance use type: marijuana Gender identity (if verbalized by the patient): Female Spiritual care concerns: No Exam Narrative: Exam Narrative: GENERAL: No-appearing, well-nourished, and in no acute distress. HEAD: Normocephalic, atraumatic. EYES: PERRLA and EOMI. ENT: Nares clear, no rhinorrhea or epistaxis. Mucous membranes moist. NECK: Supple. No adenopathy or masses. No carotid bruits or JVD CHEST: Diminished on auscultation. Mild respiratory distress. No wheezes rales or rhonchi HEART: Regular rate and rhythm. No murmur heard. Normal peripheral pulses. ABDOMEN: Soft, nontender, nondistended EXTREMITIES: Normal range of motion. No edema. SKIN: Warm, dry, no rash. NEURO: No focal deficits. Alert and oriented x3. Cranial nerves II through XII grossly intact PSYCH: Normal mood and affect. Course Course Emergency Course: Patient in the room aware of case findings treatment plan and diagnosis is refusing to have any blood work done patient was offered hospitalization and is refusing would like to go home did request to speak with hospice nonfarm animal caretaker was involved and gave the patient resources patient did not want any further information at this time or care and would like to be discharged home patient was made aware that and leaving she risks and permanent disability given her comorbidities and condition patient notes understanding of this and will sign AMA documentation and prefers to go home and does not want any further care at this time Vital Signs Vital signs: Vital Signs Temperature 97.6 F 01/30/20 10:28 Pulse Rate 62 08/2
--- NOTE | 2020-01-30 13:16 | PC.NURSE ---
pt waiting on hospice to return at this time.
== END 2020-01-30 14:23 | disposition left against medical advice (07) ==
PROVIDERS: Emergency Provider Emergency Medicine; PCP Internal Medicine
DX: R06.03 Acute respiratory distress (principal); J96.11 Chronic respiratory failure with hypoxia; D86.9 Sarcoidosis, unspecified; I27.23 Pulmonary hypertension due to lung diseases and hypoxia; I10 Essential (primary) hypertension; I27.21 Secondary pulmonary arterial hypertension; R00.0 Tachycardia, unspecified; I49.1 Atrial premature depolarization; I49.3 Ventricular premature depolarization; I45.10 Unspecified right bundle-branch block; R94.31 Abnormal electrocardiogram [ECG] [EKG]
CPT/HCPCS: 93005; 99284

== ENCOUNTER 2020-02-10 03:36 | Inpatient (IN) | payer MEDICARE, MEDICAID, SELFPAY ==
[2020-02-10] VITALS (17 sets, daily range): BP systolic 125–158; BP diastolic 88–105; PULSE 100–136; RESP 18–29; TEMP 35.9–36.5; O2SAT 92–100; BMI 21.4
--- NOTE | ~2020-02-10 | CT_ITS ---
EXAMINATION: CT brain wo con EXAM DATE: 02/11/2020 14:58 INDICATION: Confusion. TECHNIQUE: Spiral CT of the head was performed without contrast. Axial, coronal and sagittal images were reviewed. The dose-length product (DLP) for this examination was 605.33 mGy-cm. The exposure w as tailored according to patient size, and iterative reconstruction (ASIR) was used as additional dos e reduction technique. Comparison is made to prior examination from 12/13/2019. FINDINGS: There is no acute intraparenchymal hemorrhage. No evidence of intraparenchymal brain mass lesion. No evidence of acute infarction. There is no mass effect or midline shift. The ventricles are normal in size. There are no extra-axial collections. There are no acute calvarial fractures. T he orbits are unremarkable. Soft tissue is unremarkable. The visualized sinuses and mastoid air lety ls are well aerated. There is no interval change. IMPRESSION: 1. No acute intracranial findings. Reviewed, dictated and finalized at location G.
--- NOTE | ~2020-02-10 | XR_ITS ---
EXAMINATION: XR chest 1V portable INDICATION: Shortness of breath, history of sarcoidosis TECHNIQUE: Portable AP chest at 0423 hours COMPARISON: 12/14/2019, 12/13/2019 FINDINGS: The lung volumes are low. There are unchanged chronic airspace opacities involving all lung zones. No definite superimposed opacities are identified. Calcified mediastinal lymph nodes are stab le. Cardiomegaly is noted. IMPRESSION: 1. Unchanged chronic lung disease, consistent with sarcoid. Reviewed, dictated and finalized at location A.
--- NOTE | 2020-02-10 03:42 | PC.NURSE ---
pt states she wants pt boyfriend in the room but states if he starts talking he needs to go.
--- NOTE | 2020-02-10 03:55 | ECG_ITS ---
Measurements Intervals [place] Rate: 107 P: 97 RI: 142 QRS: 117 QRSD: 97 T: -7 QT: 358 QTc: 478 Interpretive Statements SINUS TACHYCARDIA ATRIAL PREMATURE COMPLEX RIGHT AXIS DEVIATION EARLY PRECORDIAL R/S TRANSITION ST-T WAVE ABNORMALITY IN ANT/INF LEADS- CONSIDER ISCHEMIA BASELINE WANDER- I, II, AVR, AVF ABNORMAL ECG Electronically Signed On 02-10-2020 8:28:18 CDT by Jet Moulton D.O.
--- NOTE | 2020-02-10 03:57 | PC.NURSE ---
pt boyfriend asked to leave room due to pt agitation increased. pt ambulated to bathroom at this time.
[2020-02-10 04:16] LABS: Base Excess ABG -1.8 mEq/l (+/-2.0); Carboxyhemoglobin 0.6 % THb (0-2.0); Fractional Inspired Oxygen 21 %; HCO3 ABG 21.8 mEq/l (22.0-26.0); Methemoglobin ABG 0.2 %THb (0-1.5); Oxygen Content ABG 20.9 %vol (16.0-22.0); Oxygen Saturation ABG 98.8 % (95.0-100.0); Oxyhemoglobin 97.6 % THb (90.0-100.0); PCO2 ABG 33.8 mmHg (35.0-45.0); PO2 ABG 138.3 mmHg (80.0-100.0); PO2 FiO2 Ratio Arterial Blood 6.59 %; Reduced Hemoglobin 1.6 %THb (0-5.0); Total Hemoglobin 15.1 g/dL (12.0-18.0); pH ABG 7.427 (7.350-7.450)
[2020-02-10 04:18] LABS: Device ROOM AIR; Modified Allen's Test Pass; Site Drawn RIGHT RADIAL
--- NOTE | 2020-02-10 04:22 | PC.NURSE ---
Called lab to add on Trop I
[2020-02-10 04:30] LABS: Basophils Absolute Auto 0.1 K/mm3 (0.0-0.1); Basophils Percent Auto 0.7 % (0.2-1.2); Eosinophils Absolute Auto 0.1 K/mm3 (0-0.3); Eosinophils Percent Auto 1.7 % (0-4.4); Hematocrit 45.8 % (37.0-47.0); Hemoglobin 14.9 g/dL (12.0-15.0); Immature Granulocyte Absolute 0.04 K/mm3 (0.00-0.031); Immature Granulocyte Percent A 0.5 % (0-0.5); Lymphocytes Absolute Auto 2.07 K/mm3 (0.9-3.2); Lymphocytes Percent Auto 25.8 % (18.3-44.2); Mean Corpuscular HGB Conc 32.5 g/dl (32-36); Mean Corpuscular Volume 98.5 fl (80-100); Mean Platelet Volume 9.9 fl (7.4-10.4); Monocytes Absolute Auto 0.8 K/mm3 (0.1-0.6); Monocytes Percent Auto 9.7 % (2.6-8.5); Neutrophils Absolute Auto 4.9 K/mm3 (1.3-6.7); Neutrophils Percent Auto 61.6 % (45.5-73.1); Platelet Count Result 348 k/mm3 (150-375); Red Blood Count 4.65 M/mm3 (4.2-5.4); Red Cell Distribution Width 13.2 % (11.5-14.5)
[2020-02-10 04:43] LABS: Alanine Aminotransferase 13 U/L (4-35); Albumin Level 3.8 g/dL (3.5-5.1); Alkaline Phosphatase 60 U/L (38-126); Anion Gap 7 mmol/L (8-16); Aspartate Amino Transferase 21 U/L (14-36); Bilirubin,Total 1.9 mg/dL (0.2-1.3); Blood Urea Nitrogen 14 mg/dL (7-17); Calcium 8.9 mg/dL (8.4-10.2); Carbon Dioxide 26 mmol/L (22-30); Chloride 106 mmol/L (98-107); Estimated Glomerular Filt Rate > 60; Glucose 106 mg/dL (65-105); Magnesium 1.8 mg/dL (1.6-2.3); Potassium 3.5 mmol/L (3.4-5.0); Sodium 139 mmol/L (137-145)
[2020-02-10 04:47] LABS: Add Urine Microscopic? YES; Appearance Urine Clear (Clear); Bacteria Urine Trace /hpf; Bilirubin Urine 1+ (Negative); Blood Urine 2+ (Negative); Color Urine Amber (Yellow); Glucose Urine UA Negative (Negative); Ketones Urine Negative (Negative); Leukocyte Esterase Ur Negative LEU/UL (Negative); Mucus Urine Heavy /lpf; Nitrate Urine Negative (Negative); Protein Urine 1+ mg/dL (Negative); RBC Urine 21-50 /hpf (0-2); Specific Grav Ur 1.029 (1.001-1.035); Squamous Epithelial Cell Urine Moderate /hpf (Few)
[2020-02-10 04:47] LABS: Ethanol < 10 mg/dL (<10)
[2020-02-10 04:55] LABS: Troponin I 0.034 ng/mL (0.000-0.034)
[2020-02-10 04:58] LABS: Amphetamine Screen Urine Negative (Negative); Barbiturate Screen Urine Negative (Negative); Benzodiazepines Screen Urine Negative (Negative); Cannabinoid Screen Urine Negative (Negative); Cocaine Screen Urine Negative (Negative); Methadone Screen Urine Negative (Negative); Opiate Screen Urine Negative (Negative); Phencyclidine Screen Urine Negative (Negative)
--- NOTE | 2020-02-10 05:13 | PC.NURSE ---
Called lab to add on BNP
--- NOTE | 2020-02-10 05:30 | ED.GENADULT ---
HPI - General Adult General Chief complaint: Psychiatric Symptoms Stated complaint: psychosis Time Seen by Provider: 02/10/20 03:38 History of Present Illness HPI narrative: Patient is a 64-year-old female who presents the ER with delirium. Patient is refusing to wear oxygen tonight and had made threats to cut her wrist with scissors to end her life towards her significant other 15 years. He then alerted EMS brought patient here. 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 She has been noncompliant with her prednisone at home and is no longer on methotrexate. Boyfriend reports that patient cut out the family quilt into multiple pieces yesterday that she is acting more erratically. He does not feel like he can continue to care for her at home given her worsening confusion. Reports that they had had hospice conversation at a previous ER visit but all the details were not completed due to her becoming frustrated and leaving AGAINST MEDICAL ADVICE. Patient is currently awake and alert and oriented x2. She believes that her boyfriend is trying to gas her to kill her. Chart review shows patient gets intermittent delirium when her oxygen level goes down and she wears it inappropriately. Related Data Home Medications Medication Instructions Recorded Confirmed aspirin 81 mg tablet,delayed 81 mg PO DAILY 06/28/19 01/30/20 release cholecalciferol (vitamin D3) 50 2,000 unit PO DAILY 06/28/19 12/13/19 mcg (2,000 unit) tablet omeprazole 20 mg capsule,delayed 20 mg PO DAILY 06/28/19 01/30/20 release tiotropium bromide 18 mcg capsule 1 cap INHALATION DAILY 06/28/19 12/14/19 with inhalation device metoprolol succinate 75 mg PO BID 12/13/19 01/30/20 prednisone 10 mg tablet 15 mg PO DAILY tablet 12/27/19 12/27/19 Allergies Allergy/AdvReac Type Severity Reaction Status Date / Time prednisone Allergy Mild Nervousness Verified 01/30/20 10:38 Quinolones Allergy Mild Nervousness Verified 01/30/20 10:38 Sulfa (Sulfonamide Allergy Mild Nausea Verified 01/30/20 10:38 Antibiotics) MOXIFLOXACIN HCL Allergy Unknown Shakiness Uncoded 01/30/20 10:38 Review of Systems Review of Systems: ROS unobtainable: Yes unobtainable due to mental status PMFSH Social History Social History Smoking status: Never smoker Alcohol intake: current Substance use: never Substance use type: marijuana Gender identity (if verbalized by the patient): Female Spiritual care concerns: No Exam Narrative: Exam Narrative: GENERAL: Pale-appearing, well-nourished, and in mild distress. HEAD: Normocephalic, atraumatic. ENT: Mucous membranes moist. CHEST: Clear to auscultation. Tachypnea. HEART: Tachycardic and regular normal peripheral pulses. ABDOMEN: Soft, nontender, nondistended. EXTREMITIES: Normal range of motion. No edema. SKIN: Warm, dry, no rash. NEURO: Alert and oriented x2. PSYCH: Normal mood and affect but reports that her boyfriend is trying to gas her to cause her harm. Denies self-harm ideation. Course Course Emergency Course: Initial evaluation patient she had just walked back from the bathroom. She is extremely short of breath and was tachycardic in the 120s. Reevaluation(s) Reevaluation #1: Patient resting comfortably. She is now awake alert and oriented x3. Denies wanting to harm herself reports maybe she is just smelling gas tonight. She has had no chest pain. EKG very concerning for potential left main disease as she has diffuse ST depression. Normal Lexiscan 1 year ago. Concerned patient is not healthy enough to go to a psych facility, patient may need some other type of placement. Date: 02/10/20 Time: 05:51 Vital Signs Vital signs: Vital Signs Temperature 97.1 F L 02/10/20 03:34 Pulse Rate 103 H 02/10/20 03:34 Respiratory Rate 21 H 02/10/20 03:34 Blood Pressure 158/105 H 02/10/20 03:34 Pulse Oximetry 100
[2020-02-10 05:50] LABS: NT Pro B Type Natriuretic Pept 6830 PG/ML (5-100)
[2020-02-10 08:11] LABS: Troponin I 0.031 ng/mL (0.000-0.034)
--- NOTE | 2020-02-10 08:40 | PM.IMHP ---
H&P: HPI History of Present Illness Date/Time: 02/10/20 08:40 Chief complaint: suicidal ideation,altered mental status,abnormal e Narrative: Anderson Whitlock is a 64 year old female with severe Sarcoidosis and WHO group 3 pulmonary arterial hypertension here for altered mental status with suicidal ideation. According to the notes in the chart, EMS was contacted this morning for complaints of paranoid delusions and psychosis. There is a notation that the patient had stopped wearing her oxygen. Vital signs were stable. She was brought to the emergency room for evaluation. In the emergency room, the boyfriend reports the patient cut up the family quilt into multiple pieces yesterday. She has been acting erratically. He does not feel like he can care for her at home given her worsening confusion. Patient believed that her boyfriend was trying to gas her to kill her. Patient does get intermittent delirium when she becomes hypoxic. She has been noncompliant with the Prednisone. Patient was alert and oriented x2 in the emergency room. After routine care in the ED, patient became more oriented (documented that she was oriented x3). She denied wanting to harm herself at that time. Patient was admitted for further care for delerium and possible suicidal ideation. Patient was evaluated in the ICU shortly after admission. She states to me that she wears 2-3 L of oxygen at home. She states that her boyfriend has been increasing this to 4-5 L at night trying to bump me off . She does not wear PAP therapy at home. She is compliant with her Advair and Spiriva. She admits to stopping her Prednisone and MTX because she felt it wasn's helping. She has chronic shortness of breath without acute change. She is very vague with details but she is oriented x4 at this time. She denies cough, chest pain or palpitations. She is not eating much and has lost about 10 lb over this year. She denies any fever or chills but does feel cold at times. She has no appetite and complains of chronic nausea. She does have elevated heart rate at times most when she is active. She also has weakness in the legs when she is trying to walk. Review of systems otherwise was negative. When asked about the mutilation of the quilt, patient states my boyfriend made me do it . She was asked multiple times for permission to call her boyfriend but she refuses repeatedly stating that he is just going to lie . She also refuses for me to call other family members. Patient denies suicidal ideation or homicidal ideation. She has no plan. No history of suicide attempts. Patient was here on January 29 in the ED for shortness of breath. She ultimately signed out against medical advise after speaking with hospice career placement services counselor. Review of Systems Review of Systems: All systems reviewed & are unremarkable except as noted in HPI and below PMFSH Past Medical History Medical History Chronic respiratory failure with hypoxia Hypertension, essential Pulmonary hypertension Sarcoidosis WHO group 3 pulmonary arterial hypertension Wrist fracture, left Surgical History Surgical History History of carpal tunnel surgery Family History Family History Mother Hypertension Family history of chronic obstructive pulmonary disease Sibling Family history of chronic obstructive pulmonary disease Family history of diabetes mellitus in first degree relative Diabetes mellitus Other Breast cancer Other Family history of congenital heart disease Social History Social History (Updated 02/10/20 @ 09:02 by Adam Panchal MD) Social History: Patient lives at home with her boyfriend. She has a dog and birds at home. She denies alcohol, tobacco or drug use. She is a full code. She nominates her son to be the individual
--- NOTE | 2020-02-10 08:41 | ADMGEN ---
This patient, Anderson Whitlock, was admitted to Intensive Care Unit-12. Patient/family oriented to hospital policies and general routines including ID bracelet, bed and alarms, visiting hours, pain management, procedures, bathroom and other care routines, personal items, smoking policy, room service/diet, and visiting hours. Valuables list has been completed. Information on how to activate the Rapid Response Team has been discussed. Patient/Family are encouraged to report perceived risks to care and to ask questions if they do not understand what they are told or what they should do.
[2020-02-10] MEDS: ENOXAPARIN 40 MG/0.4 ML SYRINGE SUB-Q (10:08)
[2020-02-10 11:38] LABS: Troponin I 0.031 ng/mL (0.000-0.034)
--- NOTE | 2020-02-10 15:14 | PC.NURSE ---
Patient refused to go to CT scan.
--- NOTE | 2020-02-10 15:47 | PC.NURSE ---
Patient is continuing to scream No over and over again. Patient removed her IV and telemetry. Patient is refusing to put oxygen on. Dr. Panchal notified. He will come down to see her.
[2020-02-10] MEDS: HALOPERIDOL LACTATE 5 MG/ML VIAL IM (16:18)
--- NOTE | 2020-02-10 20:30 | PC.NURSE ---
Patient refusing to take medication at this time, also refusing to allow RN to obtain IV access. GALDINO Treviño notified.
[2020-02-11] VITALS (16 sets, daily range): BP systolic 116–138; BP diastolic 86–97; PULSE 104–137; RESP 20–28; TEMP 35.7–37; O2SAT 93–96; BMI 21.7
--- NOTE | 2020-02-11 08:35 | PC.NURSE ---
Patient's son, Jose, on speaker [employer] phone with patient with RN at bedside. Son convinced patient to allow staff to perform CT brain. Patient calm and cooperative. No signs of frustration or hostility noted. Dr. Rodgers to be notified.
[2020-02-11] MEDS: FLUTICASONE/SALMETEROL 115-21 MCG INHALER 1 PUFF 2 PUFF INHALATION (09:55)
[2020-02-11] MEDS: METOPROLOL SUCCINATE EXT REL 25 MG TABCR 75 MG PO (15:08)
--- NOTE | 2020-02-11 15:53 | PM.IMPN ---
Progress Note: A&P Assessment and Plan (1) Suicidal ideation: Code(s): R45.851 - Suicidal ideations Status: Acute (2) Change in mental status: Qualifiers: Altered mental status type: delirium Qualified Code(s): R41.0 - Disorientation, unspecified Code(s): R41.82 - Altered mental status, unspecified Status: Acute Assessment and Plan: Could have been a period of hypoxia, or long-term steroid use by any means she is much better and will continue to monitor. CT scan of the brain no acute changes Continue Seroquel Have her seen by crisis intervention. She is medically clear to be transferred to psych facility if needed at her baseline pulmonary white (3) WHO group 3 pulmonary arterial hypertension: Code(s): I27.23 - Pulmonary hypertension due to lung diseases and hypoxia Status: Acute Assessment and Plan: End-stage and supportive care (4) Chronic respiratory failure with hypoxia: Code(s): J96.11 - Chronic respiratory failure with hypoxia Status: Acute Assessment and Plan: Improved back on her usual regime continue to monitor (5) Sarcoidosis: Code(s): D86.9 - Sarcoidosis, unspecified Status: Acute Assessment and Plan: For prognosis continue steroids and inhalers along with methotrexate (6) Hypertension, essential: Code(s): I10 - Essential (primary) hypertension Status: Acute Assessment and Plan: Pressure well controlled continue the beta-melvin (7) DVT prophylaxis: Code(s): Z29.9 - Encounter for prophylactic measures, unspecified Status: Acute Assessment and Plan: Lovenox Subjective Date/time seen: 02/11/20 15:53 Interval history: Date of visit 02/10. 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 Shortly after admission says she feels much better and had no complaints of suicidal thoughts and oriented x4 although slightly paranoid. Today she seen pretty much at her baseline with no specific complaints Exam Narrative: Exam Narrative: AF 97.1 138/86 110 25 95% 3L Gen -lying comfortably in bed in no acute distress HEENT - Sclera clear and anicteric. She is edentulous on the top row. Neck - neck was supple. Chest - lungs are clear to auscultation bilaterally. No wheezes or crackles. CV - heart was regular rate and rhythm. S1-S2. No murmurs gallops or rubs. Abd - abdomen was soft. Nontender. Nondistended. Positive bowel sounds. . Ext - no pedal edema. 2+ DP pulses bilaterally. Neuro - patient is alert and oriented x4. Strength is 5/5 in both upper and lower extremities. Cranial nerves 2-12 are intact. Speech is clear. Psych - Paranoid mood. Yesterday but appears alert and oriented today Skin - warm and dry. No rashes noted. Objective Data Vital Signs Vital Signs: Vital Signs - 24 hr 02/10/20 16:00 02/10/20 18:00 02/10/20 19:26 Temperature Pulse Rate 136 H 122 H 120 H Respiratory Rate 19 Blood Pressure 136/91 H Pulse Oximetry 93 02/10/20 19:50 02/10/20 20:00 02/10/20 22:00 Temperature 35.9 C L Pulse Rate 111 H 112 H 120 H Respiratory Rate 20 Blood Pressure Pulse Oximetry 93 93 02/11/20 00:00 02/11/20 00:06 02/11/20 02:00 Temperature 36.3 C L Pulse Rate 119 H 115 H 112 H Respiratory Rate 22 H 22 H Blood Pressure 116/92 H 116/92 H Pulse Oximetry 94 95 02/11/20 04:00 02/11/20 04:14 02/11/20 06:00 Temperature 36.3 C L Pulse Rate 117 H 129 H 114 H Respiratory Rate 23 H Blood Pressure 130/86 130/86 Pulse Oximetry 95 96 02/11/20 07:38 02/11/20 08:00 02/11/20 09:59 Temperature 36.0 C L Pulse Rate 104 H Respiratory Rate 20 Blood Pressure 125/87 Pulse Oximetry 96 95 96 02/11/20 10:00 02/11/20 12:00 02/11/20 14:00 Temperature 35.7 C L Pulse Rate 117 H 130 H 1
--- NOTE | 2020-02-11 19:53 | PC.NURSE ---
Amy called RN to patient's room, patient pulling off monitor leads and trying to eat them. Patient agitated and screaming out no . notified and JORGE LUIS Cagle ordered.
[2020-02-11] MEDS: HALOPERIDOL LACTATE 5 MG/ML VIAL IM (20:14)
[2020-02-12] VITALS: BP 99/63; PULSE 114; RESP 24; TEMP 36.6; O2SAT 95
[2020-02-12 08:00] VITALS: BP 119/70; PULSE 88; RESP 18; TEMP 35.5; O2SAT 96
[2020-02-12 09:11] VITALS: O2SAT 97
--- NOTE | 2020-02-12 14:06 | PM.IMPN ---
Progress Note: A&P Assessment and Plan (1) Suicidal ideation: Code(s): R45.851 - Suicidal ideations Status: Acute (2) Change in mental status: Qualifiers: Altered mental status type: delirium Qualified Code(s): R41.0 - Disorientation, unspecified Code(s): R41.82 - Altered mental status, unspecified Status: Acute Assessment and Plan: Could have been a period of hypoxia, or long-term steroid use by any means she is much better and will continue to monitor. CT scan of the brain no acute changes Continue Seroquel seen by crisis intervention and they felt she was not suicidal but had obvious psych issues.. Son to travel here tomrrow to see and decide about placement (3) WHO group 3 pulmonary arterial hypertension: Code(s): I27.23 - Pulmonary hypertension due to lung diseases and hypoxia Status: Acute Assessment and Plan: End-stage and supportive care (4) Chronic respiratory failure with hypoxia: Code(s): J96.11 - Chronic respiratory failure with hypoxia Status: Acute Assessment and Plan: Improved back on her usual regime continue to monitor (5) Sarcoidosis: Code(s): D86.9 - Sarcoidosis, unspecified Status: Acute Assessment and Plan: Poor prognosis continue steroids at 10 mg and inhalers if she will take, refuses methotrexate (6) Hypertension, essential: Code(s): I10 - Essential (primary) hypertension Status: Acute Assessment and Plan: Pressure well controlled continue the beta-melvin (7) DVT prophylaxis: Code(s): Z29.9 - Encounter for prophylactic measures, unspecified Status: Acute Assessment and Plan: Lovenox Subjective Date/time seen: 02/12/20 14:06 Interval history: Date of visit 02/11. 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 Shortly after admission said she felt much better and had no complaints of suicidal thoughts and oriented x4 although slightly paranoid. Crisis saw yesterday and did not think she was suicidal. Confused again last pm and will not take her medications. Today she seen pretty much at her baseline with no specific complaints Exam Narrative: Exam Narrative: AF 97.1 110/70 100 25 95% 3L Gen -lying comfortably in bed in no acute distress HEENT - Sclera clear and anicteric. She is edentulous on the top row. Neck - neck was supple. Chest - lungs are clear to auscultation bilaterally. No wheezes or crackles. CV - heart was regular rate and rhythm. S1-S2. No murmurs gallops or rubs. Abd - abdomen was soft. Nontender. Nondistended. Positive bowel sounds. . Ext - no pedal edema. 2+ DP pulses bilaterally. Neuro - patient is alert but will not answer questions today or pariticpated in exam. Psych - Paranoid mood. Skin - warm and dry. No rashes noted. Objective Data Vital Signs Vital Signs: Vital Signs - 24 hr 02/11/20 15:08 02/11/20 16:00 02/11/20 19:30 Temperature 37.0 C 36.3 C L Pulse Rate 125 H 118 H 124 H Respiratory Rate 25 H 28 H Blood Pressure 131/97 H 137/93 H Pulse Oximetry 93 95 02/11/20 20:00 02/12/20 00:00 02/12/20 09:11 Temperature 36.6 C Pulse Rate 114 H Respiratory Rate 24 H Blood Pressure 99/63 L Pulse Oximetry 95 95 97 Intake/Output Intake/Output: Intake & Output 02/09/20 02/10/20 02/11/20 02/12/20 23:59 23:59 23:59 23:59 Intake Total 400 390 120 Output Total 650 Balance 400 -260 120 Meds/Results Medications: Active Medications Generic Name Dose Route Start Last Admin Trade Name Freq PRN Reason Stop Dose Admin Acetaminophen 650 mg 02/10/20 06:30 Tylenol Tablet PO Q4H PRN Mild Pain (1-3) or Fever Aspirin 81 mg 02/11/20 09:00 02/11/20 16:32 Aspirin Ec PO Not Given DAILY [facility] Enoxaparin Sodium 40 mg
--- NOTE | 2020-02-12 16:29 | PC.NURSE ---
This patient, Anderson Whitlock, was transferred to [[id number]] on 02/12/20 at 1629. Personal belongings sent with patient. Belongings list checked and signed with receiving [ ]. Report given to [Sweta BAUTISTA]. Appropriate documentation sent with patient.
--- NOTE | 2020-02-12 16:36 | PC.NURSE ---
This patient, Anderson Whitlock, was received from ICU on 02/12/20 at 1636. Personal belongings list checked and signed. Patient/family oriented to unit policies and routines
[2020-02-12 16:40] VITALS: BP 125/78; PULSE 106; RESP 20; TEMP 36.5; O2SAT 93
[2020-02-12 20:03] VITALS: PULSE 98
[2020-02-12 22:00] VITALS: BP 126/83; PULSE 120; RESP 22; TEMP 36.6; O2SAT 93
--- NOTE | 2020-02-12 22:06 | PCRCNOTE ---
omitted due to time constraints
[2020-02-13 06:00] VITALS: BP 160/90; PULSE 88; RESP 20; TEMP 36.7; O2SAT 94
[2020-02-13 06:19] LABS: Anion Gap 7 mmol/L (8-16); Blood Urea Nitrogen 9 mg/dL (7-17); Calcium 8.5 mg/dL (8.4-10.2); Carbon Dioxide 25 mmol/L (22-30); Chloride 106 mmol/L (98-107); Estimated CRCL calculation 59 ml/min; Estimated Glomerular Filt Rate > 60; Glucose 99 mg/dL (65-105); Potassium 3.8 mmol/L (3.4-5.0); Sodium 138 mmol/L (137-145)
[2020-02-13 06:25] LABS: Basophils Absolute Auto 0.1 K/mm3 (0.0-0.1); Basophils Percent Auto 0.7 % (0.2-1.2); Eosinophils Absolute Auto 0.2 K/mm3 (0-0.3); Eosinophils Percent Auto 2.3 % (0-4.4); Hematocrit 42.8 % (37.0-47.0); Hemoglobin 13.8 g/dL (12.0-15.0); Immature Granulocyte Absolute 0.04 K/mm3 (0.00-0.031); Immature Granulocyte Percent A 0.4 % (0-0.5); Lymphocytes Absolute Auto 1.76 K/mm3 (0.9-3.2); Lymphocytes Percent Auto 17.6 % (18.3-44.2); Mean Corpuscular HGB Conc 32.2 g/dl (32-36); Mean Corpuscular Hemoglobin 31.6 pg (26-34); Mean Corpuscular Volume 97.9 fl (80-100); Mean Platelet Volume 10.2 fl (7.4-10.4); Monocytes Absolute Auto 0.9 K/mm3 (0.1-0.6); Monocytes Percent Auto 9.1 % (2.6-8.5); Neutrophils Percent Auto 69.9 % (45.5-73.1); Platelet Count Result 335 k/mm3 (150-375); Red Blood Count 4.37 M/mm3 (4.2-5.4)
[2020-02-13 14:00] VITALS: BP 158/87; PULSE 80; RESP 18; TEMP 36.7; O2SAT 98
[2020-02-13 15:14] VITALS: O2SAT 97
--- NOTE | 2020-02-13 15:33 | PCDIET ---
Nutrition Follow-Up Complete: Suboptimal oral intake related to altered mental status as evidenced by intakes of 0-40%. Patient to consume 50% of meals/supplements or greater Goal:goal not met, continue goal Pt current nutrition is regular, minced and moist, Ensure compact TID Nutrition recommendation: agree Last recorded weight is 60.2 kg (steady from admit of 61kg) Bowel Motility: Labs Reviewed:WNL Meds Noted: Ativan, Vit D Additional Notes: Pt family states her appetite was better last night. She ate mashed potatoes, cookies, green beans but when he ordered it again for her, intake was less. Average PO intake over the last five meals is 18%. Wt is holding fairly steady. Pt likes chocolate ensure so we will communicate to diet office to only send chocolate. Edu provided to family regarding menu ordering, bringing meals in from outside only with check in from nurse and meeting requirements of minced and moist. We will continue to monitor PO intake and wt every five days.
--- NOTE | 2020-02-13 17:02 | PM.IMPN ---
Progress Note: A&P Assessment and Plan (1) Suicidal ideation: Code(s): R45.851 - Suicidal ideations Status: Acute (2) Change in mental status: Qualifiers: Altered mental status type: delirium Qualified Code(s): R41.0 - Disorientation, unspecified Code(s): R41.82 - Altered mental status, unspecified Status: Acute Assessment and Plan: Could have been a period of hypoxia, or long-term steroid use by any means she is much better and will continue to monitor. CT scan of the brain no acute changes Continue Seroquel when she will take seen by crisis intervention and they felt she was not suicidal but had obvious psych issues.. Son was here today and feels that his mother is much more clear mentally and still feels she was overmedicated. Although that does not explain her withdrawal nature and refusal to eat or participate in any activities. they will decide on long-term care and possible hospice. (3) WHO group 3 pulmonary arterial hypertension: Code(s): I27.23 - Pulmonary hypertension due to lung diseases and hypoxia Status: Acute Assessment and Plan: End-stage and supportive care (4) Chronic respiratory failure with hypoxia: Code(s): J96.11 - Chronic respiratory failure with hypoxia Status: Acute Assessment and Plan: Improved back on her usual regime when she agrees to take meds, continue to monitor (5) Sarcoidosis: Code(s): D86.9 - Sarcoidosis, unspecified Status: Acute Assessment and Plan: Poor prognosis continue steroids at 10 mg and inhalers if she will take, refuses methotrexate (6) Hypertension, essential: Code(s): I10 - Essential (primary) hypertension Status: Acute Assessment and Plan: Pressure fair controlled continue the beta-melvin (7) DVT prophylaxis: Code(s): Z29.9 - Encounter for prophylactic measures, unspecified Status: Acute Assessment and Plan: Lovenox when she will take Subjective Date/time seen: 02/13/20 17:02 Interval history: Date of visit 02/12. 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 Shortly after admission said she felt much better and had no complaints of suicidal thoughts and oriented x4 although slightly paranoid. Crisis saw 02/10 and did not think she was suicidal. Confused again 9/8 pm and will not take her medications. Today she seen pretty much at her baseline with no specific complaints but minimal po intake and still will take very few meds Exam Narrative: Exam Narrative: AF 97.1 156/86 80 24 97% 3L Gen -lying comfortably in bed in no acute distress HEENT - Sclera clear and anicteric. She is edentulous on the top row. Neck - neck was supple. Chest - lungs are clear to auscultation bilaterally. No wheezes or crackles. CV - heart was regular rate and rhythm. S1-S2. No murmurs gallops or rubs. Abd - abdomen was soft. Nontender. Nondistended. Positive bowel sounds. . Ext - no pedal edema. 2+ DP pulses bilaterally. Neuro - patient is alert but will not answer questions today or participate in exam. Psych - Paranoid mood. Skin - warm and dry. No rashes noted. Objective Data Vital Signs Vital Signs: Vital Signs - 24 hr 02/12/20 20:03 02/12/20 22:00 02/13/20 06:00 Temperature 36.6 C 36.7 C Pulse Rate 98 120 H 88 Respiratory Rate 22 H 20 Blood Pressure 126/83 160/90 H Pulse Oximetry 93 94 02/13/20 14:00 02/13/20 15:14 Temperature 36.7 C Pulse Rate 80 Respiratory Rate 18 Blood Pressure 158/87 H Pulse Oximetry 98 97 Intake/Output Intake/Output: Intake & Output 02/10/20 02/11/20 02/12/20 02/13/20 23:59 23:59 23:59 23:59 Intake Total 400 390 120 460 Output Total 650 400 Balance 400 -260 -280 460 Meds/Results Medications: Active Medications Generic Name Do
[2020-02-13 22:00] VITALS: BP 107/73; PULSE 116; RESP 18; TEMP 36.5; O2SAT 99
[2020-02-13 22:18] VITALS: PULSE 116
[2020-02-13] MEDS: METOPROLOL SUCCINATE EXT REL 25 MG TABCR 75 MG PO (22:18)
[2020-02-13] MEDS: QUEtiapine FUMARATE 25 MG TABLET PO (22:19)
[2020-02-14 06:00] VITALS: BP 116/88; PULSE 100; RESP 20; TEMP 36.4; O2SAT 98
[2020-02-14] MEDS: FLUTICASONE/SALMETEROL 115-21 MCG INHALER 1 PUFF 2 PUFF INHALATION (08:26)
[2020-02-14 08:32] VITALS: O2SAT 97
[2020-02-14 08:45] VITALS: PULSE 76
[2020-02-14] MEDS: METOPROLOL SUCCINATE EXT REL 25 MG TABCR 75 MG PO (08:45)
[2020-02-14] MEDS: CHOLECALCIFEROL 1,000 UNITS TABLET 2000 UNITS PO (08:45)
[2020-02-14] MEDS: predniSONE 10 MG TABLET PO (08:45)
[2020-02-14] MEDS: ASPIRIN 81 MG ENTERIC TABLET PO (08:45)
[2020-02-14] MEDS: SPIRONOLACTONE 12.5 MG TABLET PO (08:46)
[2020-02-14] MEDS: QUEtiapine FUMARATE 25 MG TABLET PO (08:46)
[2020-02-14 14:05] LABS: SARS-CoV-2 RNA PCR Negative
--- NOTE | 2020-02-15 18:02 | PM.DS ---
DS: Admitting Diagnosis Admitting Diagnosis Admitting Diagnosis: suicidal ideation,altered mental status,abnormal e DS: Discharge Diagnosis Discharge Diagnosis (1) Change in mental status: Qualifiers: Altered mental status type: delirium Qualified Code(s): R41.0 - Disorientation, unspecified Code(s): R41.82 - Altered mental status, unspecified Status: Acute Assessment and Plan: Could have been a period of hypoxia, or long-term steroid use by any means she She improved back to her baseline . CT scan of the brain no acute changes Continued Seroquel when she will take seen by crisis intervention and they felt she was not suicidal but had obvious psych issues.. Son returned home from floor to and feels that his mother is much more clear mentally and still feels she was overmedicated. Although that does not explain her withdrawn nature and refusal to eat or participate in any activities. they decide on on returning home and not long-term care or hospice. (2) WHO group 3 pulmonary arterial hypertension: Code(s): I27.23 - Pulmonary hypertension due to lung diseases and hypoxia Status: Acute Assessment and Plan: End-stage and supportive care (3) Chronic respiratory failure with hypoxia: Code(s): J96.11 - Chronic respiratory failure with hypoxia Status: Acute Assessment and Plan: Improved back on her usual regime when she agrees to take meds, (4) Sarcoidosis: Code(s): D86.9 - Sarcoidosis, unspecified Status: Acute Assessment and Plan: Poor prognosis continue steroids at 10 mg and inhalers if she will take, refuses methotrexate but may take at discharge (5) Hypertension, essential: Code(s): I10 - Essential (primary) hypertension Status: Acute Assessment and Plan: Pressure fair controlled continue the beta-melvin DS: Summary Hospital Course Hospital Course: 64-year-old female with end-stage sarcoid pulmonary hypertension admitted with mental status changes and significant other felt she was suicidal. CT scan was unremarkable and her mental status returned to baseline which she wore her oxygen which she had been removing at home. Seen by crisis intervention he did not feel she was of suicidal risk and we agreed. Her son returned home from [place] and the family decided to return home and not pursue long-term care facility or hospice at this time Time Spent with Patient Time attestation: Total time spent providing and/or coordinating discharge services: 35 minutes Exam Narrative: Exam Narrative: condition on discharge blood pressure 116/86 pulse is 100 saturating 97% on 3 L nasal cannula lungs decreased breath sounds but clear CV regular rate rhythm abdomen soft nontender extremities without edema distal pulses 1+ neuro she was alert but minimally conversant with no focal deficits and able to walk to the restroom with standby assist. p.o. intake was marginal. Discharge Plan Discharge Attending physician on discharge: Will Rodgers Discharging Clinician: Will Rodgers Patient Disposition: Home, Self-Care Activity: as tolerated Diet: regular Patient Instructions: Antibiotic Form, Heart Failure (GEN), Help Prevent Suicide in Older Adults (GEN), Altered Mental Status (GEN), Suicide Prevention (GEN) Stand Alone Forms: General Discharge Information Follow-up/Referrals: Abdi Jessica MD [Physician] - 2 Weeks Car Pimentel DO [Primary Care Provider] - Keep Reg. Scheduled Appt. Discharge Medications: New prednisone 10 mg Tablet 10 mg PO DAILY@0800 Qty: 30 RF: 0 Continued aspirin [Adult Aspirin Regimen] 81 mg tablet,delayed release (DR/EC) 81 mg PO DAILY RF: 0 Spiriva with HandiHaler 18 mcg capsule, w/inhalation device 1 cap INHALATION DAILY RF: 0 cholecalciferol (vitamin D3) 2,000 unit tablet 2,000 unit PO DAILY RF: 0 quetiapine 25 mg tablet
== END 2020-02-14 11:00 | disposition home or self-care (01) | DRG 948 ==
LOC: ANHED 06:37 → ANHICU 07:30 → ANH3MEDSUR 02-12 21:51 → ANHICU 02-18 10:26
PROVIDERS: Family Medicine; Admitting Provider Internal Medicine; Emergency Provider Emergency Medicine; PCP Internal Medicine; Visit Provider Internal Medicine
DX: R41.82 Altered mental status, unspecified (principal); R45.851 Suicidal ideations; J96.11 Chronic respiratory failure with hypoxia; Z20.828 Contact with and (suspected) exposure to other viral communicable diseases; D86.9 Sarcoidosis, unspecified; I10 Essential (primary) hypertension; I27.23 Pulmonary hypertension due to lung diseases and hypoxia; Z91.14 Patient's other noncompliance with medication regimen; Z99.81 Dependence on supplemental oxygen
CPT/HCPCS: 36415; 36600; 70450; 71045; 80048; 80053; 80307; 81001; 82375; 82805; 83050; 83735; 83880; 84443; 84484; 85025; 87635; 93005; 94640; 96372; 99285; A9270; C9803; G0378; J1630; J1650; J7512; U0003

== ENCOUNTER 2020-03-13 11:40 | Outpatient (CLI) | payer MEDICARE, MEDICAID, SELFPAY ==
[2020-03-13 12:16] LABS: Anion Gap 6 mmol/L (8-16); Blood Urea Nitrogen 32 mg/dL (7-17); Carbon Dioxide 36 mmol/L (22-30); Chloride 98 mmol/L (98-107); Estimated Glomerular Filt Rate > 60; Glucose 98 mg/dL (65-105); Potassium 4.3 mmol/L (3.4-5.0); Sodium 140 mmol/L (137-145)
== END 2020-03-13 11:41 | disposition home or self-care (01) ==
LOC: ANHLAB 11:42
PROVIDERS: PCP Internal Medicine; Visit Provider Nurse Practitioner
DX: R60.9 Edema, unspecified (principal)
CPT/HCPCS: 36415; 80048